=== PATIENT | female | born 1940 | race Caucasian/White ===

== ENCOUNTER 2017-01-18 14:13 | Emergency (ER) | payer MEDICARE ==
[2017-01-18 14:28] VITALS: O2SAT 95
--- NOTE | 2017-01-18 14:35 | ERPHSYRPT ---
- History of Present Illness Time Seen by Provider: 01/18/17 14:17 Source: patient, family Exam Limitations: no limitations Patient Subjective Stated Complaint: PT REPORTS ROLLING RIGHT ANKLE-REPORTS PAIN TO RIGHT ANKLE Triage Nursing Assessment: PT PINK WARM ET [id number] NOTED TO RIGHT ANKLE-PEDAL PULSE REGULAR ET STRONG Physician History: mis stepped twisting right ankle at home a few minutes ago; local pain; no other injury or complaint; no prior hx Method of Injury: twisted Occurred: just prior to arrival, this afternoon Quality: constant, aching Severity of Pain-Max: moderate Severity of Pain-Current: mild Lower Extremities Pain: ankle: right Modifying Factors: Improves With: cold therapy (better), immobilization (better) , movement (worse) Associated Symptoms: unable to bear weight Allergies/Adverse Reactions: No Known Drug Allergies Allergy (Verified 01/18/17 14:19) Home Medications: Furosemide 40 mg [Lasix 40 MG] 40 mg PO DAILY 11/22/12 [History] Metoprolol Succinate 100 mg [Toprol Xl 100 MG] 100 mg PO BID 11/22/12 [ History] Potassium Chloride [Micro-K] 8 meq PO DAILY 11/22/12 [History] Lorazepam 1 mg [Ativan 1 MG] 1 mg PO TIDPRN 02/22/14 [History] Lisinopril 20 mg [Zestril 20 MG] 40 mg PO DAILY 03/27/15 [History] Oxycodone HCl/Acetaminophen [Percocet 7.5-325 mg Tablet] 1 each PO Q4HPRN PRN [History] Meloxicam 15 mg [Meloxicam 15 MG] 15 mg PO UD 01/18/17 [History] Hx Tetanus, Diphtheria Vaccination/Date Given: Yes Hx Influenza Vaccination/Date Given: No Hx Pneumococcal Vaccination/Date Given: No Immunizations Up to Date: Yes - Review of Systems Constitutional: No Symptoms Eyes: No Symptoms Ears, Nose, & Throat: No Symptoms Respiratory: No Cough, No Dyspnea, No Wheezing Cardiac: No Chest Pain, No Palpitations, No Syncope Abdominal/Gastrointestinal: No Abdominal Pain, No Nausea, No Vomiting, No Diarrhea Genitourinary Symptoms: No Symptoms Musculoskeletal: Injury (twisted right ankle), Joint Pain (right ankle) Skin: No Symptoms Neurological: No Symptoms Psychological: No Symptoms Endocrine: No Symptoms Hematologic/Lymphatic: No Symptoms Immunological/Allergic: No Symptoms - Past Medical History Pertinent Past Medical History: Yes Neurological History: No Pertinent History ENT History: Cataracts Cardiac History: High Cholesterol, Hypertension Respiratory History: No Pertinent History Endocrine Medical History: No Pertinent History Musculoskeletal History: Degenerative Disk Disease, Osteoarthritis, Other GI Medical History: Gallbladder Disease History: No Pertinent History Psycho-Social History: Anxiety, Depression Female Reproductive Disorders: No Pertinent History Other Medical History: Spinal Stenosis - Past Surgical History Past Surgical History: Yes Neuro Surgical History: No Pertinent History Cardiac: No Pertinent History Respiratory: No Pertinent History Gastrointestinal: Appendectomy, Cholecystectomy Genitourinary: No Pertinent History Musculoskeletal: Joint Replacement, Other Female Surgical History: No Pertinent History, Tubal Ligation Other Surgical History: Cataracts, Carpel Tunnel, Bilateral knee replacements - Social History Smoking Status: Never smoker Exposure to second hand smoke: No Alcohol Use: None Drug Use: none Patient Lives Alone: Yes Significant Family History: no pertinent family hx - Female History Hx Now: No - Nursing Vital Signs Nursing Vital Signs: Initial Vital Signs Temperature 98.1 F 01/18/17 14:21 Pulse Rate 72 01/18/17 14:21 Respiratory Rate 18 01/18/17 14:21 Blood Pressure 151/67 01/18/17 14:21 O2 Sat by Pulse Oximetry 96 01/18/17 14:21 Pain Scale Pain Intensity 8 - Physical Exam General Appearance: mild distress, alert, obese Eyes, Ears, Nose, Throat Exam: normal ENT inspection, moist mucous membranes Neck Exam: normal inspection, non-tender, supple, full range of motion Cardiovascular/Respiratory Exam: chest non-tender, normal breath sounds, regular rate/rhythm, heart sounds normal, no ecchymosis, no JVD, no M/R/G, no respiratory distress Gastrointestinal/Abdominal Exam: non-tender, soft, no organomegaly Back Exam: normal inspection, normal range of motion, No CVA tenderness Hips Exam: bilateral: non-tender, normal inspection, normal range of motion, no evidence of injury Legs Exam: bilateral leg: non-tender, normal inspection, normal range of motion , no evidence of injury Knees Exam: bilateral knee: non-tender, normal inspection, normal range of motion, no evidence of injury Ankle Exam: right ankle: bone tenderness (lateral malleolus), pain (lateral malleolus), soft tissue tenderness (lateral malleolus), swelling (lateral malleolus), left ankle: non-tender, normal inspection, normal range of motion, no evidence of injury Foot Exam: bilateral foot: non-tender, normal inspection, normal range of motion , no evidence of injury Neuro/Tendon Exam: normal sensation, normal motor functions, normal tendon functions, responds to pain Mental Status Exam: alert, oriented x 3, cooperative Skin Exam: normal color, warm, dry, No rash, No petechiae SpO2 Interpretation: normal SpO2: 95 Oxygen Delivery: Room Air - Course Nursing assessment & vital signs reviewed: Yes - Radiology Exams Right Ankle X-ray Interpretation: Interpreted by me, Non-displaced Fracture (hairline fracture distal right fibula; DJD and heel spurs) Ordered Tests: Active Orders 24 hr Category Date Time Status Cold Application STAT Care 01/18/17 14:25 Active Re-Check Vital Signs STAT Care 01/18/17 14:25 Active ANKLE (3 VIEWS) Stat Exams 01/18/17 14:25 Taken - Progress Progress: re-examined (after xr) Progress Note: 01/18/17 14:34 patient refused pain meds; ice applied; xr pending; will recheck 01/18/17 14:58 reviewed xr findings; treatment plan and instructions given; patient has a walker and walking boot at home and pain meds; patient will use hers Counseled pt/family regarding: diagnosis, need for follow-up, rad results - Departure Time of Disposition: 14:59 Departure Disposition: Home Clinical Impression: Fracture of ankle, Right fibular fracture Condition: Stable Critical Care Time: No Referrals: APRYL CRAIG [Primary Care Provider] - Instructions: Ankle Fracture, Ankle Sprain Additional Instructions: Acute Sprain Instructions lower extremity; R.I.C.E.; wear splint/immobilyzer as directed; observe for neuro-vascular compromise ( change in color; increased pain; cold to touch); Use crutches, walker, cane as directed. FU LMD/ specialist as directed; call for appointment as directed; Return if problems; Take meds as prescribed. Follow-up with family doctor as directed. Call for appointment. Return if any problems. If you smoke please stop. Call or follow up with your family doctor for assistance if you need it to stop. Please wear your seatbelt when driving. Have a nice day. Thank you for allowing us to participate in your care today. :o) Dr Orville Bingham
--- NOTE | 2017-01-18 15:00 | XRAY ---
Indication: Pain and swelling following fall. Comparison: None 3 views of the right ankle demonstrates nondisplaced transverse hairline fracture involving the lateral malleolus with soft tissue swelling. Elsewhere moderate spurring of the posterior/plantar calcaneus and mid foot.
[2017-01-18 15:14] VITALS: BP 101/48; PULSE 70
== END 2017-01-18 15:15 | disposition home or self-care (01) ==
LOC: ED 14:13
DX: S82.64XA Nondisplaced fracture of lateral malleolus of right fibula, initial encounter for closed fracture (principal); W10.9XXA Fall (on) (from) unspecified stairs and steps, initial encounter; X50.0XXA Overexertion from strenuous movement or load, initial encounter; E78.00 Pure hypercholesterolemia, unspecified; I10 Essential (primary) hypertension
CPT/HCPCS: 73610; 99283

== ENCOUNTER 2017-06-18 12:50 | Observation (INO) | payer MEDICARE ==
--- NOTE | 2017-06-18 13:25 | ERPHSYRPT ---
- History of Present Illness Time Seen by Provider: 06/18/17 13:15 Source: patient Exam Limitations: no limitations Patient Subjective Stated Complaint: states fell three weeks ago on tailbone. saw family and was advised to take pain meds and rest. is continuing to have pain without relief and difficulty getting around. Triage Nursing Assessment: to room per ems cot. skin w/d, color normal, resp easy. patient tender in lower back and sacral area. good bilateral pedal pulses and good cap refill. Physician History: The patient is a 76-year-old obese female brought in by ambulance from home complaining of severe pain in her low back. She fell 3 weeks ago in her minivan that had no pain for over a week. Even the same day she fell, she went to physical therapy for arthritis. For over a week now her low back has been worsening. She saw her local doctor a few days ago for the pain and was told that even if it was a broken tailbone there is nothing we would do about it. She was told to take her Percocet that she uses for arthritis for this pain. This morning even though she has a walker, she was unable to ambulate at home. Denies any problems with urination or defecation. Her past medical history is significant for arthritis, bilateral knee replacements, hypertension, and anxiety. Timing/Duration: week(s) (1) Method of Injury: unknown Quality: stabbing Back Pain Location: lumbar spine, coccyx Severity of Pain-Max: severe Severity of Pain-Current: severe Modifying Factors: Improves With: pain medication Associated Symptoms: lower back pain Previous symptoms: no prior history Allergies/Adverse Reactions: No Known Drug Allergies Allergy (Verified 06/18/17 13:02) Home Medications: Furosemide 40 mg [Lasix 40 MG] 40 mg PO DAILY 11/22/12 [History] Metoprolol Succinate 100 mg [Toprol Xl 100 MG] 100 mg PO BID 11/22/12 [ History] Potassium Chloride [Micro-K] 8 meq PO DAILY 11/22/12 [History] Lisinopril 20 mg [Zestril 20 MG] 40 mg PO DAILY 03/27/15 [History] Oxycodone HCl/Acetaminophen [Percocet 7.5-325 mg Tablet] 5 mg PO Q4HPRN PRN 10/ 01/15 [History] Meloxicam 15 mg [Meloxicam 15 MG] 15 mg PO UD 01/18/17 [History] Allopurinol 100 mg [Zyloprim 100 mg] 100 mg PO DAILY 06/18/17 [History] Alprazolam 0.25 mg [xanAX 0.25 MG] 0.25 mg PO Q6HPRN PRN 06/18/17 [History ] Atorvastatin Calcium [Lipitor] 40 mg PO DAILY 06/18/17 [History] Cyclobenzaprine HCl 10 mg [Cyclobenzaprine 10 MG] 10 mg PO [id number] PRN [History] Gabapentin [Neurontin] 300 mg PO HS 06/18/17 [History] Omeprazole 20 MG [Prilosec 20 mg] 20 mg PO DAILY 06/18/17 [History] Oxybutynin Chloride Xl 5 mg [Ditropan XL 5 MG] 5 mg PO BIDPRN PRN [History] Hx Tetanus, Diphtheria Vaccination/Date Given: Yes (2013) Hx Influenza Vaccination/Date Given: Yes Hx Pneumococcal Vaccination/Date Given: Yes - Review of Systems Constitutional: No Fever, No Chills Eyes: No Symptoms Ears, Nose, & Throat: No Symptoms Respiratory: No Cough, No Dyspnea Cardiac: No Chest Pain, No Edema, No Syncope Abdominal/Gastrointestinal: No Abdominal Pain, No Nausea, No Vomiting, No Diarrhea Genitourinary Symptoms: No Dysuria Musculoskeletal: Arthralgias, Fall, Injury Skin: No Rash Neurological: No Dizziness, No Focal Weakness, No Sensory Changes Psychological: No Symptoms Endocrine: No Symptoms Hematologic/Lymphatic: No Symptoms Immunological/Allergic: No Symptoms All Other Systems: Reviewed and Negative - Past Medical History Pertinent Past Medical History: Yes Neurological History: No Pertinent History ENT History: Cataracts Cardiac History: High Cholesterol, Hypertension Respiratory History: No Pertinent History Endocrine Medical History: No Pertinent History Musculoskeletal History: Arthritis, Osteoporosis GI Medical History: Gallbladder Disease History: No Pertinent History Psycho-Social History: Anxiety, Depression Female Reproductive Disorders: No Pertinent History Other Medical History: Spinal Stenosis - Past Surgical History Past Surgical History: Yes Neuro Surgical History: No Pertinent History Cardiac: No Pertinent History Respiratory: No Pertinent History Gastrointestinal: Appendectomy, Cholecystectomy Genitourinary: No Pertinent History Musculoskeletal: Joint Replacement, Other Female Surgical History: No Pertinent History, Tubal Ligation Other Surgical History: Cataracts, Carpel Tunnel, Bilateral knee replacements - Social History Smoking Status: Former smoker Exposure to second hand smoke: No Alcohol Use: None Drug Use: none Patient Lives Alone: Yes Significant Family History: no pertinent family hx - Female History Hx Now: No - Nursing Vital Signs Nursing Vital Signs: Initial Vital Signs Temperature 99.1 F 06/18/17 12:51 Pulse Rate 83 06/18/17 12:51 Respiratory Rate 16 06/18/17 12:51 Blood Pressure 151/75 06/18/17 12:51 O2 Sat by Pulse Oximetry 96 06/18/17 12:51 Pain Scale Pain Intensity 3 - Physical Exam General Appearance: moderate distress, obese Eye Exam: PERRL/EOMI, eyes nml inspection Ears, Nose, Throat Exam: normal ENT inspection Neck Exam: normal inspection, non-tender, supple, full range of motion, No meningismus, No midline tenderness Respiratory Exam: normal breath sounds, lungs clear, No respiratory distress Cardiovascular Exam: regular rate/rhythm, normal heart sounds Gastrointestinal Exam: soft, No tenderness, No mass Pelvic Exam: not done Rectal Exam: not done Back Exam: decreased range of motion, other (tenderness in low lumbar and sacral area), No vertebral tenderness Extremity Exam: normal inspection, normal range of motion, No calf tenderness, No pedal edema Neurologic Exam: alert, oriented x 3, cooperative, 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 tested, normal mood/affect, nml station & gait, sensation nml, No motor deficits Skin Exam: normal color, warm, dry, No rash SpO2 Interpretation: normal SpO2: 96 Oxygen Delivery: Room Air - CT Exams Pelvis CT Interpretation: Negative, Tele-radiologist Report, Other (mild wall thickening of sigmoid colon, possible colitis per ) Lumbar Spine CT Interpretation: Tele-radiologist Report, No Fracture, No Subluxation, Other ( Severe degnerative changes in lumbar spine per Dr Shaikh.) Ordered Tests: Active Orders 24 hr Category Date Time Status LUMBAR SPINE W/O [CT] Stat Exams 06/18/17 13:30 Taken PELVIS WITHOUT CONTRAST [CT] Stat Exams 06/18/17 13:31 Taken - Progress Progress: unchanged Discussed with DrRonni: Debi Counseled pt/family regarding: diagnosis, rad results - Departure Time of Disposition: 15:13 Departure Disposition: Observation (per Dr Carrera) Clinical Impression: Back pain Condition: Stable Critical Care Time: No Referrals: APRYL CRAIG [Primary Care Provider] -
[2017-06-18] MEDS ORDERED: Zofran 4 MG/2 ML VIAL IV PRN (16:15)
[2017-06-18] MEDS ORDERED: MORPHINE SULFATE 4 MG INJ IV PRN (16:15)
[2017-06-18] MEDS: Sodium Chloride 0.9% 1000 ML 1,000 ML IV SCH (17:42)
--- NOTE | 2017-06-18 18:43 | XRAY ---
Indication: Low back pain following fall 2 weeks ago. Multiple contiguous axial images obtained through the lumbar spine. Sagittal and coronal reformatted images obtained. Comparison: None. Axial images negative for acute fracture or suspicious bony lesions. There is moderate/advanced L2-S1 degenerative disc osteophyte complex effacing the thecal sac and producing L3-S1 spinal canal and bilateral foraminal stenosis. Same disc levels demonstrates degenerative vacuum disc phenomena. Sagittal and coronal reformatted images demonstrate L2-S1 disc space narrowing. No acute compression fracture or subluxation. Visualized noncontrasted soft tissues demonstrates mild aortoiliac calcifications. Impression: 1. Negative for acute fracture/subluxation. 2. Moderate/advanced L2-S1 degenerative disc disease. Greatest extent at L3-S1 levels with spinal canal and foraminal stenosis. Outpatient MRI may yield further information. Comment: Preliminary interpretation was made by [facility]. No discrepancy. CTDI 154.71
--- NOTE | 2017-06-18 18:47 | XRAY ---
Indication: Pelvic pain following fall 2 weeks ago. Multiple contiguous axial images obtained through the pelvis. Sagittal and coronal reformatted images obtained. Comparison: None Mild bilateral hip degenerative changes. No acute fracture, dislocation, or suspicious bony lesions. Degenerative changes of the lower lumbar spine reported separately. Visualized noncontrasted soft tissues demonstrates mild scattered vascular calcifications. Impression: 1. Negative acute fracture/dislocation. 2. Degenerative changes. Comment: Preliminary interpretation was made by [facility]. No critical discrepancy. CTDI 65.15
[2017-06-18] MEDS ORDERED: Ditropan 5 MG PO PRN (20:02)
[2017-06-18] MEDS ORDERED: xanAX 0.25 MG PO SCH (20:15)
[2017-06-18] MEDS: Lopressor 50 MG PO SCH (21:18)
[2017-06-18] MEDS ORDERED: NEURONTIN 300 MG PO SCH (22:00)
[2017-06-18] MEDS: OXYCODONE-ACETAMINOPHEN 10-325 PO PRN (23:20)
[2017-06-19] MEDS: Sodium Chloride 0.9% 1000 ML 1,000 ML IV SCH ×2 (03:00→13:58)
[2017-06-19 05:41] LABS: BASOPHIL % 0.3 % (0.0-0.4); Basophil (Absolute #) 0.02 (0-0.4); Eosinophil % 2.7 % (0.00-5.0); Eosinophil (Absolute #) 0.16 (0-0.5); Granulocyte Absolute (ANC) 2.87 (1.4-6.9); Granulocytes % 49.4 % (36.0-66.0); Hematocrit 35.6 % (35-47); Hemoglobin 11.4 gm/dl (12.0-16.0); Lymphocyte (Absolute #) 2.19 (1.0-4.6); Lymphocytes % 37.6 % (24.0-44.0); Mean Cell Volume 90.8 fl (78-100); Mean Platelet Volume 9.7 fl (6-9.5); Monocyte (Absolute #) 0.58 (0.0-1.3); Platelet Count 212 K/mm3 (150-450); Red Blood Count 3.92 M/mm3 (4.1-5.4); Red Cell Distribution Width 14.3 % (11.5-14.0); White Blood Count 5.8 K/mm3 (4.0-10.5)
[2017-06-19 05:46] LABS: ANION GAP 10.6 MEQ/L (5-15); BLOOD UREA NITROGEN 6 mg/dL (9-20); CHLORIDE 106 mEq/L (98-107); Carbon Dioxide 28.9 mEq/L (21-32); Creatinine 1 0.79 mg/dl (0.55-1.30); EST GLOMERULAR FILTRATION RATE > 60 ML/MIN; Glucose 136 MG/DL (70-110); SODIUM 142 mEq/L (136-145)
[2017-06-19] MEDS: OXYCODONE-ACETAMINOPHEN 10-325 PO PRN ×2 (08:22→12:41)
[2017-06-19] MEDS ORDERED: Cyclobenzaprine 10 MG PO PRN (09:01)
[2017-06-19] MEDS ORDERED: Mobic 7.5 MG PO PRN (09:01)
[2017-06-19] MEDS ORDERED: Ditropan XL 5 MG PO PRN (09:01)
[2017-06-19] MEDS: ZYLOPRIM 100 MG PO SCH (09:31)
[2017-06-19] MEDS: Lasix 40 MG PO SCH (09:31)
[2017-06-19] MEDS: Lopressor 50 MG PO SCH ×2 (09:31→21:05)
[2017-06-19] MEDS: Protonix 40MG Tablet PO SCH (09:31)
[2017-06-19] MEDS: Zestril 20 MG PO SCH (09:31)
[2017-06-19] MEDS: Klor Con 10 MEQ PO SCH (09:31)
[2017-06-19] MEDS ORDERED: NON-FORMULARY ITEM (Lisinopril [Zestril] 40 MG) PO SCH (10:00)
[2017-06-19] MEDS ORDERED: NON-FORMULARY ITEM (Omeprazole 20 Mg [Prilosec 20 Mg] 20 MG) PO SCH (10:00)
[2017-06-19] MEDS ORDERED: POTASSIUM CHLORIDE 8 MEQ PO SCH (10:00)
--- NOTE | 2017-06-19 11:37 | PCM.HP ---
History of Present Illness - Chief Complaint Chief Complaint: back pain History of Present Illness: is a 76 year old female pt of Dr. Turner who fell almost 3 weeks ago. Initially she didn't have any pain, in fact continued her phyiscal therapy the same day. Later that week she began having low back pain which now radiates to her legs, R>L. She denies any paresthesias. She does present a mixed picture of urinary retention for the past week or so (pt is only a fair historian) with intermittent episodes but did urinate well this morning. Her pain is currently well controlled when she is at rest. When she gets up it is uniformly 10/10. Requires one assist to walk to the bathroom (pt lives at home). She says the pain medicine helps her "for a little while" (on percocet 1 po q4h prn). - Review of Systems Genitourinary Symptoms: Urinary Retention (intermittently) Musculoskeletal: Back Pain, Other (leg pain) Neurological: No Parasthesia All Other Systems: Reviewed and Negative Medications & Allergies Home Medications: Home Medication List Furosemide 40 mg [Lasix 40 MG] 40 mg PO DAILY 11/22/12 [History Confirmed 06/18/17] Potassium Chloride [Micro-K] 8 meq PO DAILY 11/22/12 [History Confirmed 06/18/17 ] Allopurinol 100 mg [Zyloprim 100 mg] 100 mg PO DAILY 06/18/17 [History Confirmed 06/18/17] Alprazolam 0.25 mg [xanAX 0.25 MG] 0.25 mg PO Q6HPRN PRN 06/18/17 [ History Confirmed 06/18/17] Atorvastatin Calcium [Lipitor] 40 mg PO DAILY 06/18/17 [History Confirmed ] Cyclobenzaprine HCl 10 mg [Cyclobenzaprine 10 MG] 10 mg PO [id number] PRN [History Confirmed 06/18/17] Gabapentin [Neurontin] 300 mg PO HS 06/18/17 [History Confirmed 06/18/17] Lisinopril [Zestril] 40 mg PO DAILY 06/18/17 [History Confirmed 06/18/17] Meloxicam 7.5 mg PO DAILY 06/18/17 [History Confirmed 06/18/17] Metoprolol Tartrate [Lopressor] 100 mg PO BID 06/18/17 [History Confirmed ] Omeprazole 20 MG [Prilosec 20 mg] 20 mg PO DAILY 06/18/17 [History Confirmed ] Oxybutynin Chloride Xl 5 mg [Ditropan XL 5 MG] 5 mg PO BIDPRN PRN [History Confirmed 06/18/17] Oxycodone HCl/Acetaminophen [Oxycodone-Acetaminophen 5-325] 1 each PO Q4HPRN PRN 06/18/17 [History Confirmed 06/18/17] Allergies/Adverse Reactions: Allergies Allergy/AdvReac Type Severity Reaction Status Date / Time No Known Drug Allergies Allergy Verified 06/18/17 15:52 - Past Medical History Past Medical History: Yes Neurological History: No Pertinent History ENT History: Cataracts Cardiac History: High Cholesterol, Hypertension Respiratory History: No Pertinent History Endocrine Medical History: No Pertinent History Musculoskelatal History: Arthritis, Osteoporosis GI Medical History: GERD, Gallbladder Disease History: No Pertinent History Pyscho-Social History: Anxiety, Depression Reproductive Disorders: No Pertinent History Comment: Spinal Stenosis - Female History Are you now?: No - Past Surgical History Past Surgical History: Yes Neuro Surgical History: No Pertinent History Cardiac History: No Pertinent History Respiratory Surgery: No Pertinent History GI Surgical History: Appendectomy, Cholecystectomy Genitourinary Surgical Hx: No Pertinent History Musculskeletal Surgical Hx: Joint Replacement, Other Female Surgical History: Tubal Ligation Other Surgical History: Carpel Tunnel, Bilateral knee replacements - Social History Smoking Status: Former smoker Exposure to second hand smoke: No Alcohol: None Drug Use: none Significant Family History: no pertinent family hx - Physical Exam Vital Signs: Vital Signs - 24 hr Temp Pulse Resp BP Pulse Ox 06/19/17 08:00 98.1 F 68 18 180/76 95 06/19/17 04:05 98.0 F 68 18 140/63 93 L 06/18/17 23:42 98.8 F 76 24 167/74 93 L 06/18/17 19:38 98.4 F 75 20 182/73 95 06/18/17 16:06 98.4 F 76 18 157/90 94 L 06/18/17 15:51 98.4 F 78 18 157/90 94 L 06/18/17 15:50 98.4 F 78 18 157/90 94 L 06/18/17 15:40 98.4 F 78 18 157/90 94 L 06/18/17 15:18 96 06/18/17 14:59 84 18 103/51 94 L 06/18/17 14:12 78 18 169/91 98 06/18/17 12:51 99.1 F 83 16 151/75 96 General Appearance: no apparent distress, obese Neurologic Exam: oriented x 3, cooperative Eye Exam: eyes nml inspection Neck Exam: normal inspection, supple Respiratory Exam: normal breath sounds, lungs clear, No crackles/rales, No rhonchi, No wheezing Cardiovascular Exam: regular rate/rhythm, normal heart sounds, No murmur Gastrointestinal/Abdomen Exam: soft, normal bowel sounds, No tenderness Back Exam: other (numerous seborrheic keratoses present), No vertebral tenderness (and no paravertebral tenderness (approx L5). no SI joint TTP. Unable to elicit patellar reflexes bilat.) Results - Labs Lab/Micro Results: Lab Results-Last 24 Hours 06/19/17 06/19/17 Range/Units 05:00 05:00 WBC 5.8 (4.0-10.5) K/mm3 RBC 3.92 L (4.1-5.4) M/mm3 Hgb 11.4 L (12.0-16.0) gm/dl Hct 35.6 (35-47) % MCV 90.8 (78-100) fl MCH 29.0 (26-32) pg MCHC 32.0 (32-36) g/dl RDW 14.3 H (11.5-14.0) % Plt Count 212 (150-450) K/mm3 MPV 9.7 H (6-9.5) fl Gran % 49.4 (36.0-66.0) % Lymphocytes % 37.6 (24.0-44.0) % Monocytes % 10.0 (0.0-12.0) % Eosinophils % 2.7 (0.00-5.0) % Basophils % 0.3 (0.0-0.4) % Basophils # 0.02 (0-0.4) Sodium 142 (136-145) mEq/L Potassium 4.0 (3.5-5.1) mEq/L Chloride 106 (98-107) mEq/L Carbon Dioxide 28.9 (21-32) mEq/L Anion Gap 10.6 (5-15) MEQ/L BUN 6 L (9-20) mg/dL Creatinine 0.79 (0.55-1.30) mg/dl Estimated GFR > 60 ML/MIN Glucose 136 H (70-110) MG/DL Calcium 9.0 (8.5-10.1) mg/dL Assessment/Plan (1) Back pain Current Visit: Yes Status: Acute Qualifiers: Back pain location: low back pain Chronicity: acute Back pain laterality : midline Sciatica presence: with sciatica Sciatica laterality: bilateral sciatica Qualified Code(s): M54.42 - Lumbago with sciatica, left side; M54.41 - Lumbago with sciatica, right side; M54.41 - Lumbago with sciatica, right side Assessment & Plan: The CT lumbar spine and pelvis without any fractures. She certainly can't go home (lives alone) while requiring one assist. WBC are not elevated, but will check an ESR to help r/o osteomyelitis/discitis. I would like to get an MRI as she does have stenosis at L3-S1 (however that is not available today). She is claustrophobic and would need medicated to get an MRI. This pain is acute on chronic. She had injections in the past and would like to look into having them in the future. Code(s): M54.9 - DORSALGIA, UNSPECIFIED (2) Urinary retention Current Visit: Yes Status: Acute Assessment & Plan: Intermittent. If she complains again of not feeling that she's emptied, will have the nurse do a catheter, possibly anchor if significant amount of urine is present. Code(s): R33.9 - RETENTION OF URINE, UNSPECIFIED (3) Hypertensive heart disease Current Visit: No Status: Acute Assessment & Plan: One BP in the 100s, but generally 150s-160 while here. Will start 2.5mg amlodipine daily. Code(s): I11.9 - HYPERTENSIVE HEART DISEASE WITHOUT HEART FAILURE
[2017-06-19] MEDS: NEURONTIN 300 MG PO SCH ×2 (12:41→21:05)
[2017-06-19] MEDS: NORVASC 5 MG PO SCH (12:42)
[2017-06-19] MEDS ORDERED: LIPITOR 40MG PO SCH (22:00)
[2017-06-20] MEDS: OXYCODONE-ACETAMINOPHEN 10-325 PO PRN ×3 (00:14→14:41)
[2017-06-20] MEDS: Sodium Chloride 0.9% 1000 ML 1,000 ML IV SCH ×2 (00:15→14:38)
[2017-06-20 06:34] LABS: BASOPHIL % 0.3 % (0.0-0.4); Basophil (Absolute #) 0.02 (0-0.4); Eosinophil (Absolute #) 0.18 (0-0.5); Granulocytes % 51.5 % (36.0-66.0); Hematocrit 33.4 % (35-47); Hemoglobin 10.7 gm/dl (12.0-16.0); Lymphocyte (Absolute #) 2.01 (1.0-4.6); Lymphocytes % 33.4 % (24.0-44.0); Mean Cell Volume 91.8 fl (78-100); Mean Platelet Volume 9.8 fl (6-9.5); Monocyte (Absolute #) 0.71 (0.0-1.3); Monocytes % 11.8 % (0.0-12.0); Platelet Count 194 K/mm3 (150-450); Red Blood Count 3.64 M/mm3 (4.1-5.4); Red Cell Distribution Width 14.5 % (11.5-14.0)
[2017-06-20 06:43] LABS: Mean Corpuscular Hemoglobin 29.3 pg (26-32)
[2017-06-20 06:50] LABS: ANION GAP 7.6 MEQ/L (5-15); BLOOD UREA NITROGEN 6 mg/dL (9-20); CHLORIDE 105 mEq/L (98-107); Calcium 8.6 mg/dL (8.5-10.1); Carbon Dioxide 31.9 mEq/L (21-32); Creatinine 1 0.92 mg/dl (0.55-1.30); EST GLOMERULAR FILTRATION RATE > 60 ML/MIN; Glucose 150 MG/DL (70-110); Potassium 4.2 mEq/L (3.5-5.1); SODIUM 140 mEq/L (136-145)
--- NOTE | 2017-06-20 10:06 | PCM.NOTE ---
Date and Time: 06/20/17 1005 Subjective Assessment: she still is unable to walk without assistance she was unable to sleep much last night due to the pain. she is unable to get in a comfortable position due to the pain in the back that is mostly in the sacral/coccyx area. She otherwise is tolerating po well and has no other complaints Objective Exam General Appearance: no apparent distress, alert, obese Neurologic Exam: alert, oriented x 3, cooperative, normal mood/affect, nml cerebellar function, sensation nml, No motor deficits Skin Exam: normal color, warm, dry Eye Exam: PERRL, EOMI, eyes nml inspection Ears, Nose, Throat Exam: normal ENT inspection, pharynx normal, moist mucous membranes Neck Exam: normal inspection, non-tender, supple, full range of motion Respiratory Exam: normal breath sounds, lungs clear, No respiratory distress Cardiovascular Exam: regular rate/rhythm, normal heart sounds Gastrointestinal/Abdomen Exam: soft, No tenderness, No mass Extremity Exam: normal inspection, normal range of motion Back Exam: other (pain in the central lower sacrum/coccyx slr negative bilateral normal hip rotation bilaterally), No CVA tenderness, No vertebral tenderness Pelvic Exam: deferred Rectal Exam: deferred OBJECTIVE DATA Vital Signs: Vital Signs - 24 hr Temp Pulse Resp BP Pulse Ox 06/20/17 08:00 97.8 F 67 18 126/60 93 L 06/20/17 04:05 98.2 F 61 20 163/73 93 L 06/19/17 23:48 98.6 F 77 20 130/60 96 06/19/17 19:54 98.3 F 74 22 148/65 95 06/19/17 16:00 98.5 F 81 20 136/76 90 L 06/19/17 12:00 97.9 F 66 18 137/65 93 L Pain Assessment - Last Documented Pain Intensity 6 Pain Scale Used 0-10 Pain Scale Intake and Output: Intake & Output 06/17/17 06/18/17 06/19/17 06/20/17 11:59 11:59 11:59 11:59 Intake Total 5100 3304 Output Total 8526 2610 Balance 732 -2546 Weight 107.048 kg Lab Results: Lab Results-Last 24 Hours 06/19/17 06/20/17 06/20/17 Range/Units 12:58 05:40 05:40 WBC 6.0 (4.0-10.5) K/mm3 RBC 3.64 L (4.1-5.4) M/mm3 Hgb 10.7 L (12.0-16.0) gm/dl Hct 33.4 L (35-47) % MCV 91.8 (78-100) fl MCH 29.3 (26-32) pg MCHC 32.0 (32-36) g/dl RDW 14.5 H (11.5-14.0) % Plt Count 194 (150-450) K/mm3 MPV 9.8 H (6-9.5) fl Gran % 51.5 (36.0-66.0) % Lymphocytes % 33.4 (24.0-44.0) % Monocytes % 11.8 (0.0-12.0) % Eosinophils % 3.0 (0.00-5.0) % Basophils % 0.3 (0.0-0.4) % Basophils # 0.02 (0-0.4) ESR 56 H (0-20) mm/hr Sodium 140 (136-145) mEq/L Potassium 4.2 (3.5-5.1) mEq/L Chloride 105 (98-107) mEq/L Carbon Dioxide 31.9 (21-32) mEq/L Anion Gap 7.6 (5-15) MEQ/L BUN 6 L (9-20) mg/dL Creatinine 0.92 (0.55-1.30) mg/dl Estimated GFR > 60 ML/MIN Glucose 150 H (70-110) MG/DL Calcium 8.6 (8.5-10.1) mg/dL Assessment/Plan (1) Back pain Current Visit: Yes Status: Acute Qualifiers: Back pain location: low back pain Chronicity: acute Back pain laterality : midline Sciatica presence: without sciatica Qualified Code(s): M54.5 - Low back pain Assessment & Plan: today there is no evidence of sciatica pain that was reported yesterday. Today the pain is lower in the sacrum/coccyx again and central but she remains unable to ambulate without assistance due to the pain. increase the nuerontin try prednisone will see if PT can evaluate in am for safe discharge options, as she lives alone and has no one available to help her and currently unable to get up without assistance. Code(s): M54.9 - DORSALGIA, UNSPECIFIED (2) Hypertension Current Visit: Yes Status: Chronic Code(s): I10 - ESSENTIAL (PRIMARY) HYPERTENSION (3) Unsteady gait Current Visit: Yes Status: Chronic Code(s): R26.81 - UNSTEADINESS ON FEET (4) Recurrent falls Current Visit: Yes Status: Chronic Code(s): R29.6 - REPEATED FALLS (5) Peripheral neuropathy Current Visit: Yes Status: Chronic Code(s): G62.9 - POLYNEUROPATHY, UNSPECIFIED (6) Obesity Current Visit: Yes Status: Chronic Code(s): E66.9 - OBESITY, UNSPECIFIED
[2017-06-20] MEDS ORDERED: DELTASONE 20 MG PO ONE (10:15)
[2017-06-20] MEDS: Lasix 40 MG PO SCH (10:34)
[2017-06-20] MEDS: Klor Con 10 MEQ PO SCH (10:34)
[2017-06-20] MEDS: Lopressor 50 MG PO SCH ×2 (10:35→21:41)
[2017-06-20] MEDS: NORVASC 5 MG PO SCH (10:36)
[2017-06-20] MEDS: Zestril 20 MG PO SCH (10:37)
[2017-06-20] MEDS: Protonix 40MG Tablet PO SCH (10:37)
[2017-06-20] MEDS: ZYLOPRIM 100 MG PO SCH (10:37)
[2017-06-20] MEDS: ENOXAPARIN SODIUM SQ SCH (10:48)
[2017-06-20] MEDS: NEURONTIN 300 MG PO SCH ×3 (11:28→21:41)
[2017-06-20] MEDS ORDERED: ZOCOR 20MG PO SCH (22:00)
[2017-06-21] MEDS: DELTASONE 20 MG PO SCH (09:03)
[2017-06-21] MEDS: ENOXAPARIN SODIUM SQ SCH (09:03)
[2017-06-21] MEDS: Klor Con 10 MEQ PO SCH (09:04)
[2017-06-21] MEDS: Lopressor 50 MG PO SCH ×2 (09:05→21:12)
[2017-06-21] MEDS: Lasix 40 MG PO SCH (09:05)
[2017-06-21] MEDS: NEURONTIN 300 MG PO SCH ×4 (09:05→21:13)
[2017-06-21] MEDS: NORVASC 5 MG PO SCH (09:06)
[2017-06-21] MEDS: Protonix 40MG Tablet PO SCH (09:07)
[2017-06-21] MEDS: Zestril 20 MG PO SCH (09:08)
[2017-06-21] MEDS: ZYLOPRIM 100 MG PO SCH (09:08)
[2017-06-21] MEDS: OXYCODONE-ACETAMINOPHEN 10-325 PO PRN (13:22)
--- NOTE | 2017-06-21 13:54 | PCM.NOTE ---
Date and Time: 06/21/17 1349 Subjective Assessment: she was doing a little better yesterday and was able to get to the bathroom and wash her hair in the sink but today she needs assistance again to get out of bed to the bathroom and back to the bed. the pain continues on the tailbone and bilateral SI area no weakness inthe legs but when the pain shoots it makes her legs weak. Objective Exam General Appearance: no apparent distress, alert, obese Neurologic Exam: alert, oriented x 3, cooperative, normal mood/affect, nml cerebellar function, abnormal gait (slow cautious with assistance unable to do sit to stand), No motor deficits Skin Exam: normal color, warm, dry Eye Exam: PERRL, EOMI, eyes nml inspection Ears, Nose, Throat Exam: normal ENT inspection, pharynx normal, moist mucous membranes Neck Exam: normal inspection, non-tender, supple, full range of motion Respiratory Exam: normal breath sounds, lungs clear, No respiratory distress Cardiovascular Exam: regular rate/rhythm, normal heart sounds Gastrointestinal/Abdomen Exam: soft, No tenderness, No mass Extremity Exam: normal inspection, normal range of motion, pedal edema Back Exam: CVA tenderness, other (tenderness bilatearl SI and tenderness in the sacrum. no pain with slr bilaterally strength 5/5 bilateral while seated.) Pelvic Exam: deferred Rectal Exam: deferred OBJECTIVE DATA Vital Signs: Vital Signs - 24 hr Temp Pulse Resp BP Pulse Ox 06/21/17 11:12 98.1 F 75 16 135/60 94 L 06/21/17 07:27 98.1 F 73 16 145/68 93 L 06/21/17 04:00 97.9 F 85 15 144/60 92 L 06/21/17 00:00 98.0 F 91 H 15 135/62 95 06/20/17 20:00 98.3 F 82 16 135/72 92 L 06/20/17 16:00 98.4 F 76 18 127/93 95 Pain Assessment - Last Documented Pain Intensity 3 Pain Scale Used 0-10 Pain Scale Intake and Output: Intake & Output 06/19/17 06/20/17 06/21/17 06/22/17 11:59 11:59 11:59 11:59 Intake Total 1801 3304 1540 360 Output Total 5648 9092 500 Balance 732 -2546 1040 360 Weight 107.048 kg Assessment/Plan (1) Back pain Current Visit: Yes Status: Acute Qualifiers: Back pain location: low back pain Chronicity: acute Back pain laterality : midline Sciatica presence: without sciatica Qualified Code(s): M54.5 - Low back pain Assessment & Plan: titrate up the gabapentin again and continue the prednisone work with PT ice prn She cannot ambulate without assistance and we are working on rehab options for rehab stay to improve the pain from the fall and continue to work on gait and preventing future falls. She lives alone and currently is in need of assistance with any ambulation. She is very motivated to improve and has good rehab potential Code(s): M54.9 - DORSALGIA, UNSPECIFIED (2) Hypertension Current Visit: Yes Status: Chronic Code(s): I10 - ESSENTIAL (PRIMARY) HYPERTENSION (3) Unsteady gait Current Visit: Yes Status: Chronic Code(s): R26.81 - UNSTEADINESS ON FEET (4) Recurrent falls Current Visit: Yes Status: Chronic Code(s): R29.6 - REPEATED FALLS (5) Peripheral neuropathy Current Visit: Yes Status: Chronic Code(s): G62.9 - POLYNEUROPATHY, UNSPECIFIED (6) Obesity Current Visit: Yes Status: Chronic Code(s): E66.9 - OBESITY, UNSPECIFIED
--- NOTE | 2017-06-21 14:22 | XRAY ---
Indication: Rehabilitation placement. Comparison: July 16, 2013. Portable chest remains clear. Heart and mediastinal structures within normal limits for AP portable technique. Bony thorax intact again with mild degenerative changes. Impression: Stable nonacute chest.
[2017-06-22] MEDS: NEURONTIN 300 MG PO SCH ×4 (09:34→22:03)
[2017-06-22] MEDS: NORVASC 5 MG PO SCH (09:34)
[2017-06-22] MEDS: ZYLOPRIM 100 MG PO SCH (09:34)
[2017-06-22] MEDS: Zestril 20 MG PO SCH (09:34)
[2017-06-22] MEDS: Klor Con 10 MEQ PO SCH (09:35)
[2017-06-22] MEDS: Lasix 40 MG PO SCH (09:35)
[2017-06-22] MEDS: Lopressor 50 MG PO SCH ×2 (09:35→22:03)
[2017-06-22] MEDS: DELTASONE 20 MG PO SCH (09:35)
[2017-06-22] MEDS: ENOXAPARIN SODIUM SQ SCH (09:35)
[2017-06-22] MEDS: Protonix 40MG Tablet PO SCH (09:35)
[2017-06-22] MEDS: NYSTOP 30 GM CREAM TOP SCH ×2 (14:15→22:03)
--- NOTE | 2017-06-22 18:18 | PCM.NOTE ---
Date and Time: 06/22/171813 Subjective Assessment: she is doing better but significant pain in back continues to limit her. she still requires assistance but is requiring less assistance then before. pain worse with laying flat or sitting. Objective Exam General Appearance: alert, obese Neurologic Exam: alert, oriented x 3, cooperative, normal mood/affect Skin Exam: normal color, warm, dry Eye Exam: PERRL, EOMI, eyes nml inspection Ears, Nose, Throat Exam: normal ENT inspection, pharynx normal, moist mucous membranes Neck Exam: normal inspection, non-tender, supple, full range of motion Respiratory Exam: normal breath sounds, lungs clear, No respiratory distress Cardiovascular Exam: regular rate/rhythm, normal heart sounds Gastrointestinal/Abdomen Exam: soft, No tenderness, No mass Extremity Exam: normal inspection, normal range of motion Back Exam: point tenderness (bilateral SI SLR negative hip rotation ok no pain) Pelvic Exam: deferred Rectal Exam: deferred OBJECTIVE DATA Vital Signs: Vital Signs - 24 hr Temp Pulse Resp BP Pulse Ox 06/22/17 16:00 97.6 F 72 22 142/67 93 L 06/22/17 11:53 98.6 F 75 22 120/57 93 L 06/22/17 08:00 97.8 F 63 18 138/65 95 06/22/17 04:00 97.8 F 68 20 166/77 95 06/22/17 00:05 98.2 F 68 20 147/70 94 L 06/21/17 20:00 98.2 F 76 24 113/54 95 Pain Assessment - Last Documented Pain Intensity 4 Pain Scale Used 0-10 Pain Scale Intake and Output: Intake & Output 06/20/17 06/21/17 06/22/17 06/23/17 11:59 11:59 11:59 11:59 Intake Total 3304 1540 900 480 Output Total 5850 500 Balance -2546 1040 900 480 Radiology Exams: Radiology Procedures Category Date Time Status CHEST 1 VIEW (PORTABLE) Routine Exams 06/21/17 13:55 Completed Multi-Disciplinary Progress Notes: Multi-Disciplinary Progress Notes 06/22/17 11:57 Physical Therapy Note by Paola Orantes Pt was seen today in the AM for therapy. She noted no significant pain in the back with sitting or mobility today. She notes pain in the back with lying supine. She reports compliance with ambulating with a rollator walker at home and has been using one in the hospital. Upon arrival into her room today she was bathing herself. She needed assistance with donning undergarments. She ambulated with SBA of 1 ~100 feet with rolling walker to the therapy room. Pt's vitals were taken, BP = 190/100, HR = 76 and O2 sats = 90%. Pt was able to do therapeutic exercises for her core and B LE. She started with 5 minutes on the seated stepper. She was able to do supine strengthening exercises on the mat for her core and B LE. Pt did note back pain with lying down. She required moderate assist of 1 to sit up from lying down. Pt then ambulated back to her room with her rolling walker and SBA of 1. Pt did not have any episodes of LOB, nor did she ever report feeling off balance. She is a mild deviator when walking and has a tendency to catch her wheel of the rolling walker on things. She did note that the exercising did fatigue her and was ready to take a rest when she returned to her room. Paola Orantes, PT Initialized on 06/22/17 11:57 - END OF NOTE 06/22/17 10:37 Case Management Note by Tessa Mckeon CALL TO [facility], F/U WITH [facility] ON [facility]. SWATI TO [facility] TODAY. [facility] PENDING. Initialized on 06/22/17 10:37 - END OF NOTE Assessment/Plan (1) Back pain Current Visit: Yes Status: Acute Qualifiers: Back pain location: low back pain Chronicity: acute Back pain laterality : midline Sciatica presence: without sciatica Qualified Code(s): M54.5 - Low back pain Assessment & Plan: she continues to require assistance to do her adl's and she lives alone she is improving she is looking at options for rehab for a few weeks with good rehab potential for a few weeks. If she had someone at home to assist her we could consider this but currently she has no one available to do this. continue prednisone and gabapentin it worked well last night at the higher dose will keep it here for now Code(s): M54.9 - DORSALGIA, UNSPECIFIED (2) Hypertension Current Visit: Yes Status: Chronic Code(s): I10 - ESSENTIAL (PRIMARY) HYPERTENSION (3) Unsteady gait Current Visit: Yes Status: Chronic Code(s): R26.81 - UNSTEADINESS ON FEET (4) Recurrent falls Current Visit: Yes Status: Chronic Code(s): R29.6 - REPEATED FALLS (5) Peripheral neuropathy Current Visit: Yes Status: Chronic Code(s): G62.9 - POLYNEUROPATHY, UNSPECIFIED (6) Obesity Current Visit: Yes Status: Chronic Code(s): E66.9 - OBESITY, UNSPECIFIED
[2017-06-22] MEDS: OXYCODONE-ACETAMINOPHEN 10-325 PO PRN (20:14)
[2017-06-23] MEDS: ZYLOPRIM 100 MG PO SCH (09:45)
[2017-06-23] MEDS: Lasix 40 MG PO SCH (09:45)
[2017-06-23] MEDS: NEURONTIN 300 MG PO SCH (09:45)
[2017-06-23] MEDS: Zestril 20 MG PO SCH (09:45)
[2017-06-23] MEDS: Protonix 40MG Tablet PO SCH (09:45)
[2017-06-23] MEDS: Klor Con 10 MEQ PO SCH (09:45)
[2017-06-23] MEDS: NORVASC 5 MG PO SCH (09:45)
[2017-06-23] MEDS: ENOXAPARIN SODIUM SQ SCH (09:46)
[2017-06-23] MEDS: NYSTOP 30 GM CREAM TOP SCH (09:46)
[2017-06-23] MEDS: DELTASONE 20 MG PO SCH (09:46)
[2017-06-23] MEDS: Lopressor 50 MG PO SCH (09:46)
[2017-06-23] MEDS ORDERED: Cymbalta 30 MG Capsule PO SCH (10:00)
[2017-06-23 11:55] VITALS: BP 154/83; PULSE 82; O2SAT 94
--- NOTE | 2017-06-23 12:40 | PCM.DCORD ---
- Discharge Discharge Date: 06/23/17 Condition: Stable Prescriptions: New Duloxetine HCl 30 mg [Cymbalta 30 MG Capsule] 30 mg PO QAM cap Prednisone 20 mg [Deltasone 20 mg] 40 mg PO DAILY 4 Days #8 tablet Amlodipine Besylate 5 mg [Norvasc 5 mg] 2.5 mg PO QAM tablet Nystatin Cream 30 gm [Nystop 30 gm Cream] 1 gm TOP BID tube Continue Potassium Chloride [Micro-K] 8 meq PO DAILY Furosemide 40 mg [Lasix 40 MG] 40 mg PO DAILY Oxybutynin Chloride Xl 5 mg [Ditropan XL 5 MG] 5 mg PO BIDPRN PRN PRN Reason: bladder Cyclobenzaprine HCl 10 mg [Cyclobenzaprine 10 MG] 10 mg PO [id number] PRN PRN Reason: Pain Atorvastatin Calcium [Lipitor] 40 mg PO DAILY Omeprazole 20 MG [Prilosec 20 mg] 20 mg PO DAILY Allopurinol 100 mg [Zyloprim 100 mg] 100 mg PO DAILY Metoprolol Tartrate [Lopressor] 100 mg PO BID Lisinopril [Zestril] 40 mg PO DAILY Oxycodone HCl/Acetaminophen [Oxycodone-Acetaminophen 5-325] 1 each PO Q4HPRN PRN #120 tablet MDD 6 PRN Reason: Pain Alprazolam 0.25 mg [xanAX 0.25 MG] 0.25 mg PO Q6HPRN PRN #60 tablet PRN Reason: Anxiety Changed Gabapentin [Neurontin] 300 mg PO QID #120 capsule Discontinued Meloxicam 7.5 mg PO DAILY Additional Instructions: On June 30 increase Cymbalta to 60 mg per day PT evaluate and treat back pain, unstable gait and falls
[2017-06-23] MEDS: OXYCODONE-ACETAMINOPHEN 10-325 PO PRN (13:03)
--- NOTE | 2017-06-23 18:43 | PCM.DS ---
Discharge Summary Date of Admission: 06/18/17 15:49 Date of Discharge: 06/23/17 Admitting Physician: SANDEEP CARRERA Primary Care Provider: APRYL CRAIG Allergies Allergies No Known Drug Allergies Allergy (Verified 06/18/17 15:52) Hospital Summary - Hospital Course Hospital Course: She has had multiple falls over the last month was working with outpatient PT but actually fell the last time getting out of van on to her sacrum and since then has had difficulty working with PT due to the pain. She is now not able to walk on her own at home and the pain prevented her from preforming basic adls at home. She lives alone and was admitted to Dr. Carrera. She had negative CT for any fracture of sacrum or pelvis. SHe continued to have pain and chantal requiring assistance she would have a few periods of improvement in pain temporarely and was working with PT but then had periods were she was unable to get herself out of bed or dress herself without assistance. She had no family that was able to help her at home. She was showing good improvement as we titrated up her gabapentin and used steroid burst to help control her pain in her sacroliliac joints bilaterally as well as contusion of her sacrum/coccyx from the fall. She was still unable to go home alone and did not have the availability of help at home as she lives alone and her family all work out of town. She was thus awaiting a rehab stay and has elected to discharge to [facility] to continue to work on her rehab and titration of her medications. She has a very good rehab potential as she is working very hard and very motivated. Today we also added cymbalta to help with the pain and her chronic anxiety which is worse with her inability to care for herself on her own after this injury and these falls and will titrate it up in 1 week. - Vitals & Intake/Output Vital Signs: Vital Signs Temperature 98.8 F 06/23/17 11:54 Pulse Rate 82 06/23/17 11:54 Respiratory Rate 20 06/23/17 11:54 Blood Pressure 154/83 06/23/17 11:54 O2 Sat by Pulse Oximetry 94 L 06/23/17 11:54 Intake & Output: Intake & Output 06/21/17 06/22/17 06/23/17 06/24/17 11:59 11:59 11:59 11:59 Intake Total 1540 900 780 Output Total 500 Balance 1040 900 780 - Lab Result Diagrams: 06/20/17 05:40 06/20/17 05:40 - Procedures and Test Procedures and Tests throughout Hospitalization: Therapy Orders & Screens 06/18/17 17:00 OT Screen per Nursing Assess Comment: Protocol Order Physician Instructions: Greater than 3 points order OT Admission Screening Reason For Exam: Triggered on Admission Diagnosis: back pain Open Wound/Cellutlitis/Pressure Ulcers: No Acute Fx/ORIF/Change in wt bearing status: No Severe MUSCULOSKELETAL pain: No ADL Dysfunction: Yes Acute CVA w/Hemiparesis/Hemiplegia: No Decreased Functional Mobility/Strength: Yes Sprain/Strain: No Acute Post-op Mobility Dysfunction: No Total Points: 4 PT Screen per Nursing Assess Comment: Protocol Order Physician Instructions: Greater than 3 points order PT Admission Screenin Reason For Exam: Triggered on Admission Diagnosis: back pain Open Wound/Cellutlitis/Pressure Ulcers: No Acute Fx/ORIF/Change in wt bearing status: No Severe MUSCULOSKELETAL pain: No ADL Dysfunction: Yes Acute CVA w/Hemiparesis/Hemiplegia: No Decreased Functional Mobility/Strength: Yes Sprain/Strain: No Acute Post-op Mobility Dysfunction: No Total Points: 4 06/21/17 13:21 PT Eval & Treat (MD Order) ROUTINE Evaluate: Yes Treat: Yes Reason for Eval:: unstable gait, falls, back pain Diagnosis: back pain Discharge Exam General Appearance: no apparent distress, alert, obese Neurologic Exam: alert, oriented x 3, cooperative, normal mood/affect, sensation nml, motor deficits (left leg she is unable to flex she has 3/5 weakness on the left hip flexion otherwise good strength throughout. Her pain is in the bilateral SI joint and sacrum and coccyx on palpation as well as along the right IT band. She does not have pain on the left leg today. SLR negative bilaterally) Skin Exam: normal color, warm, dry Eye Exam: PERRL, EOMI, eyes nml inspection Ears, Nose, Throat Exam: normal ENT inspection, pharynx normal, moist mucous membranes Neck Exam: normal inspection, non-tender, supple, full range of motion Respiratory Exam: normal breath sounds, lungs clear, No respiratory distress Cardiovascular Exam: regular rate/rhythm, normal heart sounds Gastrointestinal/Abdomen Exam: soft, No tenderness, No mass Extremity Exam: normal inspection, normal range of motion Back Exam: normal inspection, normal range of motion, No CVA tenderness, No vertebral tenderness Pelvic Exam: deferred Rectal Exam: deferred Final Diagnosis/Problem List - Final Discharge Diagnosis/Problem (1) Back pain Status: Acute (2) Hypertension Status: Chronic (3) Unsteady gait Status: Chronic (4) Recurrent falls Status: Chronic (5) Peripheral neuropathy Status: Chronic (6) Obesity Status: Chronic - Discharge Discharge Date: 06/23/17 Disposition: DC TO [facility] Condition: Stable Prescriptions: New Duloxetine HCl 30 mg [Cymbalta 30 MG Capsule] 30 mg PO QAM cap Prednisone 20 mg [Deltasone 20 mg] 40 mg PO DAILY 4 Days #8 tablet Amlodipine Besylate 5 mg [Norvasc 5 mg] 2.5 mg PO QAM tablet Nystatin Cream 30 gm [Nystop 30 gm Cream] 1 gm TOP BID tube Continue Potassium Chloride [Micro-K] 8 meq PO DAILY Furosemide 40 mg [Lasix 40 MG] 40 mg PO DAILY Oxybutynin Chloride Xl 5 mg [Ditropan XL 5 MG] 5 mg PO BIDPRN PRN PRN Reason: bladder Cyclobenzaprine HCl 10 mg [Cyclobenzaprine 10 MG] 10 mg PO [id number] PRN PRN Reason: Pain Atorvastatin Calcium [Lipitor] 40 mg PO DAILY Omeprazole 20 MG [Prilosec 20 mg] 20 mg PO DAILY Allopurinol 100 mg [Zyloprim 100 mg] 100 mg PO DAILY Metoprolol Tartrate [Lopressor] 100 mg PO BID Lisinopril [Zestril] 40 mg PO DAILY Oxycodone HCl/Acetaminophen [Oxycodone-Acetaminophen 5-325] 1 each PO Q4HPRN PRN #120 tablet MDD 6 PRN Reason: Pain Alprazolam 0.25 mg [xanAX 0.25 MG] 0.25 mg PO Q6HPRN PRN #60 tablet PRN Reason: Anxiety Changed Gabapentin [Neurontin] 300 mg PO QID #120 capsule Discontinued Meloxicam 7.5 mg PO DAILY Additional Instructions: CADE THAKKAR: On June 30 increase Cymbalta to 60 mg per day PT evaluate and treat back pain, unstable gait and falls HEART HEALTHY DIET SEE ATTACHED MED LIST/RX'S FOR CURRENT MED ORDERS Follow up with: APRYL CRAIG [Primary Care Provider] - 1 Week
== END 2017-06-23 13:30 ==
LOC: ED 12:50 → MED SURG 15:49
PROVIDERS: ADMIT Family Medicine; ATTEND Family Medicine
DX: M54.5 Low back pain (principal); M54.42 Lumbago with sciatica, left side; M54.41 Lumbago with sciatica, right side; I11.9 Hypertensive heart disease without heart failure; R26.81 Unsteadiness on feet; R29.6 Repeated falls; Z91.81 History of falling; G62.9 Polyneuropathy, unspecified; E66.9 Obesity, unspecified; M79.606 Pain in leg, unspecified; M81.0 Age-related osteoporosis without current pathological fracture; M19.90 Unspecified osteoarthritis, unspecified site; K21.9 Gastro-esophageal reflux disease without esophagitis; F41.8 Other specified anxiety disorders; M48.00 Spinal stenosis, site unspecified; Z96.653 Presence of artificial knee joint, bilateral; R33.9 Retention of urine, unspecified
CPT/HCPCS: 36415; 71010; 72131; 72192; 80048; 85025; 85652; 99285; G0378; J1650; J2270; 97110-GP; A9270-GY

== ENCOUNTER 2018-10-11 07:59 | Day surgery (SDC) | payer MEDICARE ==
[2018-10-11] MEDS ORDERED: Ketamine HCl 50 MG/ML IJ ONE (08:00)
[2018-10-11] MEDS ORDERED: Marcaine 0.5% SDV 10 ML IJ ONE (08:00)
[2018-10-11] MEDS ORDERED: LIDOCAINE HCL 2% 100 MG/5 ML IJ ONE (08:00)
[2018-10-11] MEDS ORDERED: Depo-Medrol 40 MG/ML IM ONE (08:00)
[2018-10-11] MEDS ORDERED: DIPRIVAN 200 MG/20 ML IV ONE (08:00)
--- NOTE | 2018-10-11 11:22 | XRAY ---
Indication: Left hip injection. Intraoperative fluoroscopy was provided for 9 seconds. Single digital spot image submitted for interpretation demonstrates needle tip adjacent to the left greater trochanter. Small amount of contrast injected for needle tip placement. Correlate with intraoperative findings/report.
--- NOTE | 2018-10-11 11:22 | XRAY ---
Indication: Right hip injection. Intraoperative fluoroscopy was provided for 15 seconds. Single digital spot image submitted for interpretation demonstrates needle tip adjacent to the right greater trochanter. Small amount of contrast injected for needle tip placement. Correlate with intraoperative findings/report.
--- NOTE | 2018-10-11 11:24 | XRAY ---
9 seconds fluoroscopy time in surgery for left hip injection.
--- NOTE | 2018-10-11 11:35 | XRAY ---
15 seconds fluoroscopy time in surgery for right hip injection.
[2018-10-11] MEDS ORDERED: Lactated Ringers 1,000 ML IV ONE (17:09)
== END 2018-10-11 10:35 | disposition home or self-care (01) ==
LOC: SDC-PAIN 07:59
PROVIDERS: ATTEND Psychiatry & Neurology Pain Medicine
DX: M70.61 Trochanteric bursitis, right hip (principal); M70.62 Trochanteric bursitis, left hip; Z79.899 Other long term (current) drug therapy; E11.9 Type 2 diabetes mellitus without complications; I10 Essential (primary) hypertension
CPT/HCPCS: 20611; 73501; 77002; 82962; J1030; J2704; Q9966

== ENCOUNTER 2019-02-07 09:23 | Day surgery (SDC) | payer MEDICARE ==
[2019-02-07] MEDS ORDERED: Marcaine 0.5% SDV 10 ML IJ ONE (09:24)
[2019-02-07] MEDS ORDERED: Depo-Medrol 40 MG/ML IM ONE (09:24)
[2019-02-07] MEDS ORDERED: DIPRIVAN 200 MG/20 ML IV ONE (10:28)
[2019-02-07] MEDS ORDERED: Ketamine HCl 50 MG/ML ONE (10:28)
--- NOTE | 2019-02-07 11:18 | XRAY ---
Indication: Left greater trochanter injection. Intraoperative fluoroscopy was provided for 9 seconds. Single digital spot image submitted for interpretation demonstrates needle tip projecting just lateral to the left greater trochanter. Small amount of contrast injected for needle tip placement. Correlate with intraoperative findings/report.
--- NOTE | 2019-02-07 11:18 | XRAY ---
Indication: Right greater trochanter injection. Intraoperative fluoroscopy was provided for 10 seconds. Single digital spot image submitted for interpretation demonstrates needle tip projecting just lateral to the right greater trochanter. Small amount of contrast injected for needle tip placement. Correlate with intraoperative findings/report.
--- NOTE | 2019-02-07 11:23 | XRAY ---
9 seconds fluoroscopy time in surgery for left greater trochanteric injection.
--- NOTE | 2019-02-07 11:33 | XRAY ---
10 seconds fluoroscopy time in surgery for right greater trochanteric injection.
[2019-02-07] MEDS ORDERED: Lactated Ringers 1,000 ML IV ONE (15:24)
== END 2019-02-07 11:00 | disposition home or self-care (01) ==
LOC: SDC-PAIN 09:23
PROVIDERS: ATTEND Psychiatry & Neurology Pain Medicine
DX: M70.62 Trochanteric bursitis, left hip (principal); M70.61 Trochanteric bursitis, right hip; E11.9 Type 2 diabetes mellitus without complications; I10 Essential (primary) hypertension; Z79.899 Other long term (current) drug therapy
CPT/HCPCS: 20610; 73501; 77002; 82962; J1030; J2704; Q9966

== ENCOUNTER 2019-11-22 13:18 | Emergency (ER) | payer MEDICARE ==
--- NOTE | 2019-11-22 13:27 | ERPHSYRPT ---
- History of Present Illness Time Seen by Provider: 11/22/19 13:27 Source: patient Exam Limitations: no limitations Physician History: This is a 79-year-old white female who presents to the emergency department 2 days after injuring her right ankle while attempting to ride her tractor/ lawnmower. In the last couple days patient noticed that there is increased swelling, some discoloration and persistent tenderness. She has been walking on it but it has hurt to do so. Method of Injury: fell, twisted Occurred: days ago (2) Quality: constant, aching Severity of Pain-Max: mild Severity of Pain-Current: mild Lower Extremities Pain: ankle: right Modifying Factors: Improves With: movement (Hurts to move and ambulate on right ankle) Allergies/Adverse Reactions: No Known Drug Allergies Allergy (Verified 11/22/19 13:34) Home Medications: Furosemide 40 mg [Lasix 40 MG] 40 mg PO DAILY 11/22/12 [History] Potassium Chloride [Micro-K] 8 meq PO DAILY 11/22/12 [History] Allopurinol 100 mg [Zyloprim 100 mg] 100 mg PO DAILY 06/18/17 [History] Atorvastatin Calcium [Lipitor] 40 mg PO DAILY 06/18/17 [History] Cyclobenzaprine HCl 10 mg [Cyclobenzaprine 10 MG] 10 mg PO [id number] PRN [History] Metoprolol Tartrate [Lopressor] 100 mg PO BID 06/18/17 [History] Omeprazole 20 MG [Prilosec 20 mg] 20 mg PO DAILY 06/18/17 [History] Oxybutynin Chloride Xl 5 mg [Ditropan XL 5 MG] 5 mg PO BIDPRN PRN [History] lisinopriL [Zestril] 40 mg PO DAILY 06/18/17 [History] Hx Tetanus, Diphtheria Vaccination/Date Given: Yes (2013) Hx Influenza Vaccination/Date Given: Yes Hx Pneumococcal Vaccination/Date Given: Yes Travel Risk - International Travel Have you traveled outside of the country in past 3 weeks: No Have you or anyone close to you been diagnosed with or: No Do your reside in a community with a known COVID-19 case?: Yes If Yes where:: [facility] - Coronavirus Screening Has patient experienced Coronavirus symptoms: No - Review of Systems Constitutional: No Symptoms Eyes: No Symptoms Ears, Nose, & Throat: No Symptoms Respiratory: No Symptoms Cardiac: No Symptoms Abdominal/Gastrointestinal: No Symptoms Genitourinary Symptoms: No Symptoms Musculoskeletal: Fall, Injury (Right ankle) Skin: No Symptoms Neurological: No Symptoms Psychological: No Symptoms Endocrine: No Symptoms Hematologic/Lymphatic: No Symptoms Immunological/Allergic: No Symptoms All Other Systems: Reviewed and Negative - Past Medical History Pertinent Past Medical History: Yes Neurological History: No Pertinent History ENT History: Cataracts Cardiac History: High Cholesterol, Hypertension Respiratory History: No Pertinent History Endocrine Medical History: No Pertinent History Musculoskeletal History: Arthritis GI Medical History: GERD, Gallbladder Disease History: No Pertinent History Psycho-Social History: Anxiety, Depression Female Reproductive Disorders: No Pertinent History Other Medical History: Spinal Stenosis - Past Surgical History Past Surgical History: Yes Neuro Surgical History: No Pertinent History Cardiac: No Pertinent History Respiratory: No Pertinent History Gastrointestinal: Appendectomy, Cholecystectomy Genitourinary: No Pertinent History Musculoskeletal: Joint Replacement, Other Female Surgical History: Tubal Ligation Other Surgical History: Carpel Tunnel, Bilateral knee replacements - Social History Smoking Status: Former smoker Exposure to second hand smoke: No Alcohol Use: None Drug Use: none Patient Lives Alone: Yes Significant Family History: no pertinent family hx - Nursing Vital Signs Nursing Vital Signs: Initial Vital Signs Temperature 98.2 F 11/22/19 13:23 Pulse Rate 73 11/22/19 13:23 Blood Pressure 160/70 11/22/19 13:23 O2 Sat by Pulse Oximetry 98 11/22/19 13:23 Pain Scale Pain Intensity 3 - Physical Exam General Appearance: no apparent distress, alert, anxiety Eyes, Ears, Nose, Throat Exam: normal ENT inspection, moist mucous membranes Neck Exam: normal inspection, non-tender, supple, full range of motion Cardiovascular/Respiratory Exam: chest non-tender Gastrointestinal/Abdominal Exam: non-tender Back Exam: normal inspection, normal range of motion, No CVA tenderness, No vertebral tenderness Hips Exam: bilateral: non-tender, normal inspection, normal range of motion, no evidence of injury Legs Exam: bilateral leg: non-tender, normal inspection, normal range of motion , no evidence of injury Knees Exam: bilateral knee: non-tender, normal inspection, normal range of motion, no evidence of injury Ankle Exam: right ankle: pain, soft tissue tenderness, swelling, left ankle: non -tender, normal inspection, normal range of motion, no evidence of injury Foot Exam: right foot: normal range of motion, no evidence of injury, soft tissue tenderness, swelling, left foot: non-tender, normal inspection Neuro/Tendon Exam: normal sensation, normal motor functions, normal tendon functions Mental Status Exam: alert, oriented x 3, cooperative Skin Exam: normal color, warm, dry SpO2 Interpretation: normal O2 Delivery: Room Air - Course Nursing assessment & vital signs reviewed: Yes Ordered Tests: Active Orders 24 hr Category Date Time Status ANKLE (3 VIEWS) Stat Exams 11/22/19 13:29 Taken - Progress Progress: unchanged Progress Note: 11/22/19 14:02 X-ray of right ankle reveals no evidence of acute fracture or dislocation Counseled pt/family regarding: diagnosis, need for follow-up, rad results - Departure Departure Disposition: Home Clinical Impression: Right ankle sprain Condition: Stable Critical Care Time: No Referrals: KATERINA DRISCOLL DO [Primary Care Provider] - Additional Instructions: Ice pack to right ankle 3 times a day for the next 48 hours. Elevate the right lower extremity above the level of the heart. May use Tylenol ibuprofen if not allergic to either one of those medications. Follow-up with your primary physician if symptoms persist
[2019-11-22 13:34] VITALS: BP 160/70; PULSE 73; O2SAT 98
--- NOTE | 2019-11-22 13:59 | XRAY ---
Indication: Pain following twisting injury. Comparison: February 10, 2017. 3 view right ankle now demonstrates old nonunited lateral malleolus tip fracture. Elsewhere soft tissue swelling with stable spurring of the posterior/plantar calcaneus, medial malleolus, base 5th metatarsal, and mid tarsal bones. Stable tiny plantar aponeurosis calcification and faint lower leg vascular calcifications. Remaining ankle unremarkable.
== END 2019-11-22 14:24 | disposition home or self-care (01) ==
LOC: ED 13:18
DX: S93.401A Sprain of unspecified ligament of right ankle, initial encounter (principal); X37.1XXA Tornado, initial encounter; Y93.89 Activity, other specified; Y92.89 Other specified places as the place of occurrence of the external cause; Z79.899 Other long term (current) drug therapy; K21.9 Gastro-esophageal reflux disease without esophagitis; F32.9 Major depressive disorder, single episode, unspecified; F41.9 Anxiety disorder, unspecified; M48.00 Spinal stenosis, site unspecified
CPT/HCPCS: 73610; 99283

== ENCOUNTER 2020-05-04 13:27 | Emergency (ER) | payer MEDICARE ==
[2020-05-04] MEDS ORDERED: Augmentin 875-125 Tablet PO ONE (14:23)
[2020-05-04] MEDS ORDERED: Augmentin 875-125 Tablet ONE (14:23)
--- NOTE | 2020-05-04 14:30 | ERPHSYRPT ---
- History of Present Illness Time Seen by Provider: 05/04/20 13:47 Source: patient Exam Limitations: no limitations Patient Subjective Stated Complaint: dog bite R foot Triage Nursing Assessment: pt to ED c/o dog bite R foot from kirill ty at her home at approx 1200. states she had her feet kicked up in kitchen and dog came back after leaving kitchen and bit her foot. rates 3/10 that does not radiate. full ROM. noted mulitple puncture wounds to top of foot and 2.5 cm lac to top of foot. cleaned with peroxide and alcohol at home bell captain. Physician History: 79 years old female presented in the ER with chief complaint of dog bite right foot prior to arrival. Patient reports she puts food in front of her dog and was walking around, got angry on something and bit her. There was bleeding initially but stopped with applying pressure. She is complaining of mild to moderate dull aching to sharp pain, more with palpation and walking but has no difficulty ambulation. Up-to-date tetanus. Dog is up-to-date with imm unizations. No injury anywhere else. Timing/Duration: today Quality: painful Severity: moderate Location: feet Possible Causes: other Associated Symptoms: change in skin texture Allergies/Adverse Reactions: No Known Drug Allergies Allergy (Verified 05/04/20 13:50) Home Medications: Furosemide 40 mg [Lasix 40 MG] 40 mg PO DAILY 11/22/12 [History] Potassium Chloride [Micro-K] 8 meq PO DAILY 11/22/12 [History] Allopurinol 100 mg [Zyloprim 100 mg] 100 mg PO DAILY 06/18/17 [History] Atorvastatin Calcium [Lipitor] 40 mg PO DAILY 06/18/17 [History] Cyclobenzaprine HCl 10 mg [Cyclobenzaprine 10 MG] 10 mg PO [id number] PRN 06/18/17 [History] Metoprolol Tartrate [Lopressor] 100 mg PO BID 06/18/17 [History] Omeprazole 20 MG [Prilosec 20 mg] 20 mg PO DAILY 06/18/17 [History] Oxybutynin Chloride Xl 5 mg [Ditropan XL 5 MG] 5 mg PO BIDPRN PRN 06/18/17 [History] lisinopriL [Zestril] 40 mg PO DAILY 06/18/17 [History] Hx Tetanus, Diphtheria Vaccination/Date Given: Yes Hx Influenza Vaccination/Date Given: Yes Hx Pneumococcal Vaccination/Date Given: Yes Immunizations Up to Date: Yes Travel Risk - International Travel Have you traveled outside of the country in past 3 weeks: No - Coronavirus Screening Are you exhibiting any of the following symptoms?: No Close contact with a COVID-19 positive Pt in past 14-21 Days: No - Review of Systems Constitutional: No Symptoms Eyes: No Symptoms Ears, Nose, & Throat: No Symptoms Respiratory: No Symptoms Cardiac: No Symptoms Abdominal/Gastrointestinal: No Symptoms Genitourinary Symptoms: No Symptoms Musculoskeletal: Injury Skin: Rash, Skin Lesions Neurological: No Symptoms Psychological: No Symptoms Endocrine: No Symptoms Hematologic/Lymphatic: No Symptoms Immunological/Allergic: No Symptoms - Past Medical History Pertinent Past Medical History: Yes Neurological History: No Pertinent History ENT History: Cataracts Cardiac History: High Cholesterol, Hypertension Respiratory History: No Pertinent History Endocrine Medical History: No Pertinent History Musculoskeletal History: Arthritis GI Medical History: GERD, Gallbladder Disease History: No Pertinent History Psycho-Social History: Anxiety, Depression Female Reproductive Disorders: No Pertinent History Other Medical History: Spinal Stenosis. diet controlled diabetes - Past Surgical History Past Surgical History: Yes Neuro Surgical History: No Pertinent History Cardiac: No Pertinent History Respiratory: No Pertinent History Gastrointestinal: Appendectomy, Cholecystectomy Genitourinary: No Pertinent History Musculoskeletal: Joint Replacement, Other Female Surgical History: Tubal Ligation Other Surgical History: Carpel Tunnel, Bilateral knee replacements - Social History Smoking Status: Former smoker Exposure to second hand smoke: No Alcohol Use: None Drug Use: none Patient Lives Alone: No Significant Family History: no pertinent family hx - Female History Hx Now: No - Nursing Vital Signs Nursing Vital Signs: Initial Vital Signs Temperature 98.9 F 05/04/20 13:40 Pulse Rate 79 05/04/20 13:40 Respiratory Rate 20 05/04/20 13:40 Blood Pressure 170/101 05/04/20 13:40 O2 Sat by Pulse Oximetry 94 L 05/04/20 13:40 Pain Scale Pain Intensity 3 - Physical Exam General Appearance: no apparent distress Eye Exam: eyes nml inspection Neck Exam: normal inspection, supple, full range of motion Respiratory Exam: normal breath sounds, lungs clear Cardiovascular Exam: regular rate/rhythm, normal heart sounds Extremity Exam: other (multiple abrasiona nd bite jermaine witha 3 cm superficial laceration dorsum of mid foot. no active bleed /spurting. minimal erythema swelling around the bite areas) Neurologic Exam: alert, oriented x 3, cooperative Skin Exam: normal color SpO2 Interpretation: normal SpO2: 94 O2 Delivery: Room Air - Course Nursing assessment & vital signs reviewed: Yes Ordered Tests: Active Orders 24 hr Category Date Time Status Wound Care STAT Care 05/04/20 14:35 Completed Medication Summary Discontinued Medications Generic Name Dose Route Start Last Admin Trade Name Miguel A PRN Reason Stop Dose Admin Amoxicillin/Clavulanate Potassium 875 mg 05/04/20 14:23 05/04/20 14:25 Augmentin 875-125 Tablet PO 05/04/20 14:24 875 mg STAT ONE Administration Amoxicillin/Clavulanate Potassium Confirm 05/04/20 14:23 Augmentin 875-125 Tablet Administered 05/04/20 14:24 Dose 875 mg .ROUTE .STK-MED ONE - Progress Progress: unchanged Progress Note: 05/04/20 14:48 offered pain meds which she refuse. cleaned , on small laceration steristrips applied . dog is uptodate with immunization and patient uptodate with tetnus . started on augmenting. outpatient follow up , return for worsening. Counseled pt/family regarding: diagnosis, need for follow-up - Departure Departure Disposition: Home Clinical Impression: Dog bite of right foot Qualifiers: Encounter type: initial encounter Qualified Code(s): S91.351A - Open bite, right foot, initial encounter Condition: Stable Critical Care Time: No Referrals: KATERINA DRISCOLL DO [Primary Care Provider] - Follow Up with PCP/3 days Instructions: Animal Bites (DC) Additional Instructions: Take Tylenol/ibuprofen as needed. Apply ice. Avoid exertional activities, try to stay off of her right foot. Follow-up with primary care/podiatry for reevaluation. Return to ER for increasing swelling redness discharge/fever chil ls etc. Prescriptions: Amox Tr/Potass Clav. 875 mg [Augmentin 875-125 Tablet] 875 mg PO BID 7 Days #14 tablet
[2020-05-04 14:37] VITALS: BP 164/83; PULSE 68
[2020-05-04 14:51] VITALS: O2SAT 94
== END 2020-05-04 14:45 | disposition home or self-care (01) ==
LOC: ED 13:27
DX: S91.351A Open bite, right foot, initial encounter (principal); W54.0XXA Bitten by dog, initial encounter; Z79.899 Other long term (current) drug therapy
CPT/HCPCS: 99283; A9270-GY

== ENCOUNTER 2020-12-25 22:31 | Emergency (ER) | payer MEDICARE ==
[2020-12-25] MEDS ORDERED: NORCO 5/325 MG PO ONE (22:56)
--- NOTE | 2020-12-25 22:57 | ERPHSYRPT ---
- History of Present Illness Time Seen by Provider: 12/25/20 22:50 Source: patient, family Physician History: The patient is an 80-year-old female with a past medical history significant for chronic back pain in which she has a spine stimulator and who is right-hand dominant presents with a chief complaint of right wrist pain. The patient reportedly had a mechanical fall this past Tuesday and fell on an outstretched right hand resulted in injury. She reportedly stubbed her toe causing her to trip and fall on the floor at home. Of note, the patient lives with her daughter. She reportedly has a walker that she uses whenever going outside but was not using her walker indoors at the time of the fall. She states she hit the right side of her head but did not lose consciousness. The patient denies taking anticoagulants. She has no complaints of headache. She states that the right wrist is a throbbing pain that increases upon touching the wrist or trying to move the right hand or wrist. The pain is constant and moderate. She has been taken Tylenol with no relief in her symptoms. She is endorsed swelling and some redness to the right wrist as well. Her daughter decided to bring her to the emergency department and concerned she may have "broke" the right wrist. Allergies/Adverse Reactions: No Known Drug Allergies Allergy (Verified 05/04/20 13:50) Home Medications: Furosemide 40 mg [Lasix 40 MG] 40 mg PO DAILY 11/22/12 [History] Potassium Chloride [Micro-K] 8 meq PO DAILY 11/22/12 [History] Allopurinol 100 mg [Zyloprim 100 mg] 100 mg PO DAILY 06/18/17 [History] Atorvastatin Calcium [Lipitor] 40 mg PO DAILY 06/18/17 [History] Cyclobenzaprine HCl 10 mg [Cyclobenzaprine 10 MG] 10 mg PO [id number] PRN 06/18/17 [History] Metoprolol Tartrate [Lopressor] 100 mg PO BID 06/18/17 [History] Omeprazole 20 MG [Prilosec 20 mg] 20 mg PO DAILY 06/18/17 [History] Oxybutynin Chloride Xl 5 mg [Ditropan XL 5 MG] 5 mg PO BIDPRN PRN 06/18/17 [History] lisinopriL [Zestril] 40 mg PO DAILY 06/18/17 [History] Hx Tetanus, Diphtheria Vaccination/Date Given: Yes Hx Influenza Vaccination/Date Given: Yes Hx Pneumococcal Vaccination/Date Given: Yes - Review of Systems Constitutional: No Fever, No Chills Respiratory: No Symptoms, No Cough, No Cyanosis Cardiac: No Chest Pain, No Edema, No Palpitations Abdominal/Gastrointestinal: No Abdominal Pain, No Nausea, No Vomiting Musculoskeletal: Fall, Injury, Joint Pain, Other (Right wrist pain and swelling), No Back Pain, No Neck Pain Skin: No Symptoms Neurological: No Headache Psychological: No Symptoms - Past Medical History Pertinent Past Medical History: Yes Neurological History: No Pertinent History ENT History: Cataracts Cardiac History: High Cholesterol, Hypertension Respiratory History: No Pertinent History Endocrine Medical History: No Pertinent History Musculoskeletal History: Arthritis GI Medical History: GERD, Gallbladder Disease History: No Pertinent History Psycho-Social History: Anxiety, Depression Female Reproductive Disorders: No Pertinent History Other Medical History: Spinal Stenosis. diet controlled diabetes - Past Surgical History Past Surgical History: Yes Neuro Surgical History: No Pertinent History Cardiac: No Pertinent History Respiratory: No Pertinent History Gastrointestinal: Appendectomy, Cholecystectomy Genitourinary: No Pertinent History Musculoskeletal: Joint Replacement, Other Female Surgical History: Tubal Ligation Other Surgical History: Carpel Tunnel, Bilateral knee replacements - Social History Smoking Status: Former smoker Exposure to second hand smoke: No Alcohol Use: None Drug Use: none Patient Lives Alone: No Significant Family History: no pertinent family hx - Nursing Vital Signs Nursing Vital Signs: Initial Vital Signs Temperature 98.3 F 12/25/20 22:44 Pulse Rate 80 12/25/20 22:44 Respiratory Rate 18 12/25/20 22:44 Blood Pressure 172/81 12/25/20 22:44 O2 Sat by Pulse Oximetry 96 12/25/20 22:44 Pain Scale Pain Intensity 5 - Physical Exam General Appearance: no apparent distress, alert Eye Exam: PERRL/EOMI, eyes nml inspection, scleral icterus Neck Exam: normal inspection, non-tender, supple, other (No midline cervical spine tenderness, crepitus or stepoff) Respiratory Exam: normal breath sounds, lungs clear, airway intact, No chest tenderness, No respiratory distress, No diminished breath sounds Cardiovascular Exam: regular rate/rhythm, normal heart sounds, normal peripheral pulses, capillary refill <2 sec, other (Radial pulse 2+ bilaterally, capillary refill brisk in all fingers of the R hand), No murmur, No friction rub, No gallop Gastrointestinal/Abdomen Exam: soft, No tenderness Extremity Exam: swelling, tenderness, other (There is swelling and tenderness to the right wrist and the patient had difficulty flexing extending the wrist due to pain. She had pain upon palpation of the snuffbox on the right. Motor function was intact in the ulnar, median and radial nerve distributions of the right hand. There is no elbow ) Neurologic Exam: alert, oriented x 3, cooperative, other (Sensation was grossly intact to touch and equal in the ulnar, median and radial nerve distributions of the hands.) Skin Exam: normal color, warm, dry, No rash SpO2 Interpretation: normal O2 Delivery: Room Air - Course Nursing assessment & vital signs reviewed: Yes - Radiology Exams Wrist X-ray Interpretation: Interpreted by me, Reviewed by me, Teleradiologist Report (No acute fracture) Hand X-ray Interpretation: Interpreted by me, Reviewed by me, Teleradiologist Report (? chip fracture of the dorsal aspect of the middle phalanx of the 4th digit) Ordered Tests: Active Orders 24 hr Category Date Time Status Splint STAT Care 12/26/20 02:13 Completed HAND (MINIMUM 3 VIEWS) Stat Exams 12/26/20 00:01 Taken WRIST (MIN 3 VIEWS) Stat Exams 12/26/20 00:01 Taken Medication Summary Discontinued Medications Generic Name Dose Route Start Last Admin Trade Name Miguel A PRN Reason Stop Dose Admin Hydrocodone Bitart/Acetaminophen 2 tab 12/25/20 22:56 12/25/20 23:06 [place] 5/325 Mg PO 12/25/20 22:57 2 tab STAT ONE Administration Hydrocodone Bitart/Acetaminophen Confirm 12/25/20 23:06 [place] 5/325 Mg Administered 12/25/20 23:07 Dose 2 tab .ROUTE .STK-MED ONE - Progress Progress: improved Progress Note: 12/25/20 23:15 The patient presents with right wrist pain after a mechanical fall. She appears to have no evidence of head injury and her cervical spine seem to be intact and therefore I will defer neurocranial imaging including C-spine imaging at this time. I will obtain an x-ray of her right wrist and hand to eval for evidence of fracture or dislocation. I am highly concerned the patient may have a distal radius fracture. On the differential in addition to a possible scaphoid fracture. 12/26/20 02:17 X-rays show no evidence of acute fracture and the incidental finding of a possible chip fracture to the dorsal aspect of the middle phalanx of the fourth digit was likely an overread. On exam she had no tenderness or any swelling located to that digit. The patient is likely suffering from a sprained wrist. She will be provided a Velcro wrist splint for comfort and instructed to take Tylenol and/or ibuprofen as needed for pain. Should be instructed to follow-up with her primary care provider for further evaluation and management. Counseled pt/family regarding: diagnosis, need for follow-up, rad results - Departure Departure Disposition: Home Clinical Impression: Sprain of wrist, right, Fall Condition: Stable Critical Care Time: No Referrals: KATERINA DRISCOLL, [Primary Care Provider] - Instructions: Wrist Sprain (DC), Splint Care Additional Instructions: Please take Tylenol and/or ibuprofen as needed for any ongoing pain. You can purchase these medications [id number]. Please take these medications as instructed on the medication bottles.
[2020-12-25] MEDS ORDERED: NORCO 5/325 MG ONE (23:06)
[2020-12-26 02:21] VITALS: BP 112/47; PULSE 64; O2SAT 96
--- NOTE | 2020-12-26 09:13 | XRAY ---
Indication: Pain following fall. Comparison: None 3 view right wrist demonstrates mild osteopenia, moderate/advanced degenerative changes 1st metacarpal multangular scaphoid articulation, mild radiocarpal joint space narrowing, radial ulnar carpal degenerative chondrocalcinosis, and mild widening scapholunate interval. No other bony, articular, or soft tissue abnormalities. Comment: Preliminary interpretation was made by [facility]. No critical discrepancy.
--- NOTE | 2020-12-26 09:15 | XRAY ---
Indication: Pain following fall. Comparison: None 3 view right dand demonstrates mild osteopenia, moderate/advanced degenerative changes 1st metacarpal multangular scaphoid articulation, mild/moderate degenerative changes of all IP joints with tiny heterotopic ossifications, and mild degenerative changes all MCP joints. No other bony, articular, or soft tissue abnormalities. Wrist reported separately. Comment: Preliminary interpretation was made by [facility]. No critical discrepancy.
== END 2020-12-26 02:29 | disposition home or self-care (01) ==
LOC: ED 22:31
DX: S63.501A Unspecified sprain of right wrist, initial encounter (principal); M25.531 Pain in right wrist; W01.10XA Fall on same level from slipping, tripping and stumbling with subsequent striking against unspecified object, initial encounter; Y92.009 Unspecified place in unspecified non-institutional (private) residence as the place of occurrence of the external cause; Z79.899 Other long term (current) drug therapy; I10 Essential (primary) hypertension; E78.00 Pure hypercholesterolemia, unspecified; Z96.82 Presence of neurostimulator
CPT/HCPCS: 73110; 73130; 99284; L3908; A9270-GY

== ENCOUNTER 2021-11-30 14:14 | Emergency (ER) | payer MEDICARE ==
--- NOTE | 2021-11-30 14:31 | ERPHSYRPT ---
- History of Present Illness Time Seen by Provider: 11/30/21 14:17 Source: patient, family Exam Limitations: no limitations Physician History: This is an 81-year-old white female who fell outside of a local restaurant hitting her head, right side of her face/cheek and right anterior knee. She did not lose consciousness but she does have a headache. She denies neck pain. She is not on any anticoagulation therapy. Patient does have a history of gastroesophageal reflux disease, hypertension, elevated cholesterol and gout. Occurred: just prior to arrival Reason for Fall: tripped Injuries/Pain Location: head, face, lower extremity (Right anterior knee) Loss of Consciousness: no loss of consciousness Quality: aching Severity of Pain-Max: mild Severity of Pain-Current: mild Modifying Factors: Improves With: movement Associated Symptoms (Fall): extremity injury (Right anterior knee), headache, No neck pain Allergies/Adverse Reactions: No Known Drug Allergies Allergy (Verified 11/30/21 14:23) Home Medications: Furosemide 40 mg [Lasix 40 MG] 40 mg PO DAILY 11/22/12 [History] Potassium Chloride [Micro-K] 8 meq PO DAILY 11/22/12 [History] Allopurinol 100 mg [Zyloprim 100 mg] 100 mg PO DAILY 06/18/17 [History] Atorvastatin Calcium [Lipitor] 40 mg PO DAILY 06/18/17 [History] Cyclobenzaprine HCl 10 mg [Cyclobenzaprine 10 MG] 10 mg PO [id number] PRN 06/18/17 [History] Metoprolol Tartrate [Lopressor] 100 mg PO BID 06/18/17 [History] Omeprazole 20 MG [Prilosec 20 mg] 20 mg PO DAILY 06/18/17 [History] Oxybutynin Chloride Xl 5 mg [Ditropan XL 5 MG] 5 mg PO BIDPRN PRN 06/18/17 [History] lisinopriL [Zestril] 40 mg PO DAILY 06/18/17 [History] Hx Tetanus, Diphtheria Vaccination/Date Given: Yes Hx Influenza Vaccination/Date Given: Yes Hx Pneumococcal Vaccination/Date Given: Yes Travel Risk - International Travel Have you traveled outside of the country in past 3 weeks: No - Coronavirus Screening Are you exhibiting any of the following symptoms?: No Close contact with a COVID-19 positive Pt in past 14-21 Days: No - Vaccine Status Have you recieved a Covid-19 vaccination: Yes Supervisor Pleating: Moderna - Vaccination Dates Date of 2cond Vaccination (if applicable): 09/12/20 - Review of Systems Constitutional: No Symptoms Eyes: Other (Right periorbital soft tissue swelling.) Ears, Nose, & Throat: No Symptoms Respiratory: No Symptoms Cardiac: No Symptoms Abdominal/Gastrointestinal: No Symptoms Genitourinary Symptoms: No Symptoms Musculoskeletal: Injury (Right anterior knee) Skin: No Symptoms Neurological: No Symptoms Psychological: No Symptoms Endocrine: No Symptoms Hematologic/Lymphatic: No Symptoms Immunological/Allergic: No Symptoms All Other Systems: Reviewed and Negative - Past Medical History Pertinent Past Medical History: Yes Neurological History: Peripheral Neuropathy ENT History: Cataracts Cardiac History: Hypertension Respiratory History: No Pertinent History Endocrine Medical History: Diabetes Type II Musculoskeletal History: Osteoarthritis GI Medical History: GERD, Gallbladder Disease History: No Pertinent History Psycho-Social History: Anxiety, Depression Female Reproductive Disorders: No Pertinent History Other Medical History: PT HAS AN INHALER AND USES NEEDED. INTERNAL TENS FOR HER BACK. PT NOTES HER DOG BIT HER IN HER L BIG TOE, ALSO THINKS SHE HAS GOUT IN THE R FOOT. B TKA. - Past Surgical History Past Surgical History: Yes Neuro Surgical History: No Pertinent History Cardiac: No Pertinent History Respiratory: No Pertinent History Gastrointestinal: Appendectomy, Cholecystectomy Genitourinary: No Pertinent History Musculoskeletal: Joint Replacement, Other Female Surgical History: Tubal Ligation Other Surgical History: Carpel Tunnel, Bilateral knee replacements - Social History Smoking Status: Former smoker Exposure to second hand smoke: No Alcohol Use: None Drug Use: none Patient Lives Alone: No Significant Family History: no pertinent family hx - Nursing Vital Signs Nursing Vital Signs: Initial Vital Signs Temperature 97.2 F 11/30/21 14:16 Pulse Rate 78 11/30/21 14:16 Respiratory Rate 18 11/30/21 14:16 Blood Pressure 137/69 11/30/21 14:16 O2 Sat by Pulse Oximetry 98 11/30/21 14:16 Pain Scale Pain Intensity 3 - Veronica Coma Score Best Eye Response (Veronica): (4) open spontaneously Best Verbal Response ([place]): (5) oriented Best Motor Response (Veronica): (6) obeys commands [place] Total: 15 - Physical Exam General Appearance: no apparent distress Head Injury: no evidence of injury Eye Exam: PERRL/EOMI, other (Right periorbital soft tissue swelling) ENT Exam: airway nml, nml ext.inspection, hearing grossly normal, other (Soft tissue swelling right side of nose), No evidence of ENT injury Neck Exam: supple, trachea midline, full range of motion, normal alignment, normal inspection Respiratory/Chest Exam: normal breath sounds, No chest tenderness, No respiratory distress, No ecchymosis, No crepitus Cardiovascular Exam: normal heart sounds, regular rate/rhythm Gastrointestinal Exam: soft, normal bowel sounds, No tenderness Rectal Exam: not done Back Exam: normal inspection, normal range of motion, No CVA tenderness, No vertebral tenderness Extremity Exam: normal range of motion, pelvis stable, tenderness (Anterior right knee) Neurologic Exam: alert, oriented x 3, cooperative, 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 Right knee.) SpO2 Interpretation: normal O2 Delivery: Room Air Ordered Tests: Active Orders 24 hr Category Date Time Status FACIAL BONES WO CONTRAST [CT] Stat Exams 11/30/21 15:24 Completed HEAD WITHOUT CONTRAST [CT] Stat Exams 11/30/21 15:24 Completed KNEE (3 VIEWS) Stat Exams 11/30/21 15:24 Completed - Progress Progress: unchanged, pain not gone completely, re-examined Progress Note: 11/30/21 17:03 X-ray of right knee shows no acute fracture or dislocation. The total knee arthroplasty is intact. CAT scan of the head without contrast shows right supraorbital soft tissue swelling. No acute intracranial abnormalities. Facial bones CT shows minimally depressed right nasal bone fracture with soft tissue swelling. Counseled pt/family regarding: diagnosis, need for follow-up, rad results - Departure Departure Disposition: Home Clinical Impression: Fall with injury, Facial abrasion, Nasal bone fracture Condition: Stable Critical Care Time: No Referrals: KATERINA DRISCOLL DO [Primary Care Provider] - Follow up/PCP as directed Additional Instructions: Ice pack to tender, swollen areas 3 times a day for the next 48 hours. Use antibiotic ointment of choice to the abrasion sites. Use Tylenol and ibuprofen, if there are no contraindications, for pain control. Follow-up with your primary care provider if your symptoms persist.
--- NOTE | 2021-11-30 16:26 | XRAY ---
Indication: Right periorbital swelling following fall. Multiple contiguous axial images obtained through the head without contrast. Comparison: None Age-appropriate global atrophy and mild/moderate periventricular degenerative micro-ischemia bilaterally. No acute intracranial hemorrhage, abnormal extra-axial fluid collection, or mass effect. Fourth ventricle is midline without hydrocephalus. Guidry-white matter differentiation preserved. Mild right supraorbital soft tissue swelling. Bony calvarium intact. Paranasal sinuses and mastoid air cells are clear. Impression: Right supraorbital soft tissue swelling. Otherwise nonacute senile brain.
--- NOTE | 2021-11-30 16:30 | XRAY ---
Indication: Right periorbital swelling following fall. Multiple contiguous axial images obtained through the facial bones. Sagittal and coronal reformatted images obtained. Comparison: None Mild right supraorbital soft tissue swelling. Minimally depressed right nasal bone fracture with soft tissue swelling. No other acute fracture, suspicious bony lesions, or radiopaque foreign body. Orbits including roof, valentine, and floors intact. Paranasal sinuses and nasal passages are clear. Mild nasal septal deviation to the left. Patient is edentulous. Moderate/advanced degenerative changes of the visualized cervical spine. Moderate bilateral carotid calcifications. Remaining visualized noncontrasted soft tissues unremarkable. Impression: 1. Minimally depressed right nasal bone fracture with soft tissue swelling and right supraorbital soft tissue swelling. 2. Incidental nasal septal deviation, multilevel cervical degenerative changes, and bilateral carotid calcifications.
--- NOTE | 2021-11-30 16:32 | XRAY ---
Indication: Pain and contusion following fall. Comparison: None 3 view right knee demonstrates osteopenia, total knee arthroplasty with intact prosthesis, and mild scattered vascular calcifications. No other bony, articular, or soft tissue abnormalities.
[2021-11-30 17:35] VITALS: BP 106/50; PULSE 68; O2SAT 98
== END 2021-11-30 17:05 | disposition home or self-care (01) ==
LOC: ED 14:14
DX: S02.2XXA Fracture of nasal bones, initial encounter for closed fracture (principal); W19.XXXA Unspecified fall, initial encounter; S00.81XA Abrasion of other part of head, initial encounter; M25.561 Pain in right knee; R51.9 Headache, unspecified; I10 Essential (primary) hypertension; E78.5 Hyperlipidemia, unspecified; E11.42 Type 2 diabetes mellitus with diabetic polyneuropathy; Z79.899 Other long term (current) drug therapy
CPT/HCPCS: 70450; 70486; 73562; 99284

== ENCOUNTER 2023-12-06 13:03 | Emergency (ER) | payer MEDICARE ==
[2023-12-06 13:53] VITALS: TEMP 98.4
--- NOTE | 2023-12-06 14:40 | ERPHSYRPT ---
- History of Present Illness Time Seen by Provider: 12/06/23 14:25 Source: family Exam Limitations: clinical condition Patient Subjective Stated Complaint: Daughter states that the pt began having visual hallucincations this morning, pt states that it's when her eyes are c losed she sees things and then when she opens them, it isn't there Triage Nursing Assessment: Pt brought to the ER by her daughter, vitals wnl, rates pain as 10/10, daughter states that the pt was looking at the wall and made her daughter "wipe all the bugs away" that weren't really there, she then said "well you missed them, they have all ran away, pt is also having visual hallucinations with her eyes closed, a couple of weeks ago the pt thought she was sewing by hand all day although she didn't have anything in her hands, then a couple of days ago she began doing and saying things again that really wasn't there, pt has not started any new meds Physician History: The patient, with a history of a shoulder injury, presents with new onset griggs llucinations. She reports seeing bugs on the wall and a piece of a car in a tree with a man in it. These hallucinations have been occurring for the past day. The patient's family member notes that the patient has been talking in her sleep but has never hallucinated before. The patient has not been on any pain medication for the past two and a half days. In addition to the hallucinations, the patient has been experiencing pain in her previously injured shoulder. The injury occurred in May, and the patient suspects she may have re-injured it. The pain is located in the top part of her left shoulder. The patient also reports a recent episode of tachycardia with a heart rate of 155. She described feeling like her heart was "beating out of her chest" and had difficulty breathing. The episode resolved with rest and use of an inhaler. The patient denies any changes in the color or smell of her urine. She has not had any new medications added or removed recently. She also denies any abdominal pain or fever. Timing/Duration: day(s) (4) Severity: moderate Character of Deficits: other (ams, hallucination) Deficits: no difficulties Baseline/Normal Cognition: alert oriented x 3 Current Cognition: alert but confused Baseline Gait: walks w/o assistance Associated Symptoms: confusion, muscle spasms, No fever, No chills, No loss of consciousness, No nausea, No vomiting, No weakness, No numbness/tingling in legs/feet, No slurred speech Allergies/Adverse Reactions: No Known Drug Allergies Allergy (Verified 12/06/23 13:53) Home Medications: Furosemide 40 mg [Lasix 40 MG] 40 mg PO DAILY 11/22/12 [History] Allopurinol 100 mg [Zyloprim 100 mg] 400 mg PO DAILY 06/18/17 [History] Atorvastatin Calcium [Lipitor] 40 mg PO DAILY 06/18/17 [History] Metoprolol Tartrate [Lopressor] 100 mg PO BID 06/18/17 [History] Omeprazole 20 MG [Prilosec 20 mg] 20 mg PO DAILY 06/18/17 [History] lisinopriL [Zestril] 40 mg PO DAILY 06/18/17 [History] Empagliflozin [Jardiance] 25 mg PO DAILY 12/06/23 [History] Gabapentin [Neurontin] 300 mg PO BID 12/06/23 [History] Magnesium Citrate and Oxide [Magnesium] 250 mg PO BID 12/06/23 [History] Ropinirole HCl 2 mg PO HS 12/06/23 [History] Vibegron [Gemtesa] 75 mg PO DAILY 12/06/23 [History] Hx Tetanus, Diphtheria Vaccination/Date Given: Yes Hx Influenza Vaccination/Date Given: Yes Hx Pneumococcal Vaccination/Date Given: Yes Travel Risk - International Travel Have you traveled outside of the country in past 3 weeks: No - Emerging Infectious Disease Are you exhibiting symptoms associated with any current EIDs: No - Review of Systems All Other Systems: Reviewed and Negative - Past Medical History Pertinent Past Medical History: Yes Neurological History: Peripheral Neuropathy ENT History: Cataracts Cardiac History: Hypertension Respiratory History: No Pertinent History Endocrine Medical History: Diabetes Type II Musculoskeletal History: Osteoarthritis GI Medical History: GERD, Gallbladder Disease History: No Pertinent History Psycho-Social History: Anxiety, Depression Female Reproductive Disorders: No Pertinent History Other Medical History: PT HAS AN INHALER AND USES NEEDED. INTERNAL TENS FOR HER BACK. PT NOTES HER DOG BIT HER IN HER L BIG TOE, ALSO THINKS SHE HAS GOUT IN THE R FOOT. B TKA. - Past Surgical History Past Surgical History: Yes Neuro Surgical History: No Pertinent History Cardiac: No Pertinent History Respiratory: No Pertinent History Gastrointestinal: Appendectomy, Cholecystectomy Genitourinary: No Pertinent History Musculoskeletal: Joint Replacement, Other Female Surgical History: Tubal Ligation Other Surgical History: Carpel Tunnel, Bilateral knee replacements Significant Family History: no pertinent family hx - Social History Smoking Status: Former smoker Exposure to second hand smoke: No Alcohol Use: None Drug Use: none Patient Lives Alone: No - Social Determinants of Health Will the patient participate in the screening: Yes Do you worry about a steady place to live?: No Do you have any problems with any of the following?: No known problems In the past 12 months,have you had to go without utilities?: No Transportation Issues: No Has anyone in your support network made you feel unsafe?: No Have you or anyone in your house had to go without enough: No - Nursing Vital Signs Nursing Vital Signs: Initial Vital Signs Temperature 98.4 F 12/06/23 13:37 Pulse Rate 67 12/06/23 13:37 Blood Pressure 116/69 12/06/23 13:37 O2 Sat by Pulse Oximetry 95 12/06/23 13:37 Pain Scale Pain Intensity 0 - [place] Coma Scale Best Eye Response (Veronica): (4) open spontaneously Best Verbal Response ([place]): (4) confused conversation Best Motor Response (Veronica): (6) obeys commands Veronica Total: 14 - Physical Exam General Appearance: no apparent distress, obese Eye Exam: bilateral eye: normal inspection, PERRL, EOMI Ears, Nose, Throat Exam: normal ENT inspection Neck Exam: normal inspection, non-tender, supple, full range of motion Respiratory: airway intact, No respiratory distress Cardiovascular: regular rate/rhythm, capillary refill <2 sec Gastrointestinal: soft, No tenderness Extremity Exam: limited range of motion (left shoulder), swelling (left shoulder), tenderness (left shoulder) Mental Status: alert, cooperative supervisor channel process Exam: normal hearing, normal speech, PERRL, tongue midline Coordination/Gait: normal cerebellar function Motor/Sensory: no motor deficit, no sensory deficit, no pronator drift Skin Exam: normal color, warm, dry SpO2 Interpretation: normal SpO2: 95 O2 Delivery: Room Air - Course Nursing assessment & vital signs reviewed: Yes - CT Exams Head CT Interpretation: Tele-radiologist Report, No/Intracranial Hemorrhag Upper Extremity CT Interpretation: Tele-radiologist Report, Other (calcified abscess of deltoid/infraspinatus region, osseous destruction of scapula) Ordered Tests: Active Orders 24 hr Category Date Time Status IV Insertion STAT Care 12/06/23 14:40 Active Pulse Oximetry (ED) STAT Care 12/06/23 14:40 Active cath [Cath for Specimen-Straight] STAT Care 12/06/23 13:38 Active HEAD WITHOUT CONTRAST [CT] Stat Exams 12/06/23 16:13 Taken SHOULDER Stat Exams 12/06/23 14:40 Completed UPPER EXTREMITY W CONTRAST [CT] Stat Exams 12/06/23 18:16 Taken CBC W DIFF Stat Lab 12/06/23 14:55 Completed CK (IN-HOUSE) [CK-Creatinine Phosphokinase] Stat Lab 12/06/23 17:12 Completed CMP Stat Lab 12/06/23 14:55 Completed CULTURE,URINE Stat Lab 12/06/23 13:38 Ordered Calcium, Ionized Stat Lab 12/06/23 16:55 Completed ESR [Erythrocyte Sedimentation Rate] Stat Lab 12/06/23 14:55 Completed LIPASE Stat Lab 12/06/23 17:28 Completed LIPID PROFILE Stat Lab 12/06/23 17:11 Completed Lactic Acid Stat Lab 12/06/23 15:00 Completed Lactic Acid Stat Lab 12/06/23 17:02 Completed PHOSPHOROUS Stat Lab 12/06/23 17:28 Completed TSH, 3RD Generation Stat Lab 12/06/23 14:55 Completed UA W/RFX UR CULTURE Stat Lab 12/06/23 13:38 Completed Vitamin B12 Stat Lab 12/06/23 14:55 Completed Medication Summary Generic Name Dose Route Start Last Admin Trade Name Freq PRN Reason Stop Dose Admin Vancomycin HCl 2 gm in 400 mls @ 133.333 mls/hr 12/06/23 23:06 Vancomycin 2 Gram/400 Ml Bag IV 12/07/23 02:05 STAT ONE Piperacillin Sod/Tazobactam 100 mls @ 200 mls/hr 12/06/23 23:07 12/06/23 23:12 Sod 3.375 gm/ Sodium Chloride IV 12/06/23 23:36 200 mls/hr STAT ONE Administration Discontinued Medications Generic Name Dose Route Start Last Admin Trade Name Freq PRN Reason Stop Dose Admin Sodium Chloride 1,000 mls @ 999 mls/hr 12/06/23 16:12 12/06/23 17:26 Sodium Chloride 0.9% 1000 Ml IV 12/06/23 17:12 Infused .Q1H1M STA Infusion Ceftriaxone Sodium 2 gm in 100 mls @ 200 mls/hr 12/06/23 16:13 12/06/23 16:56 Rocephin 2 Gm/100 Ml Nacl IV 12/06/23 16:42 Infused STAT ONE Infusion Sodium Chloride Confirm 12/06/23 16:23 Sodium Chloride 0.9% 1000 Ml Administered 12/06/23 16:24 Dose 1,000 mls @ ud .ROUTE .STK-MED ONE Ceftriaxone Sodium Confirm 12/06/23 16:23 Rocephin 2 Gm/100 Ml Nacl Administered 12/06/23 16:24 Dose 2 gm in 100 mls @ ud IV .STK-MED ONE Sodium Chloride Confirm 12/06/23 23:09 Sodium Chloride 100ml Mini-Bag Plus Administered 12/06/23 23:10 Dose 100 mls @ ud IV .STK-MED ONE Vancomycin HCl Confirm 12/06/23 23:14 Vancomycin 2 Gram/400 Ml Bag Administered 12/06/23 23:15 Dose 2 gm in 400 mls @ ud IV .STK-MED ONE Ketorolac Tromethamine 30 mg 12/06/23 19:40 12/06/23 19:42 Ketorolac Tromethamine 30 Mg/Ml Inj IV 12/06/23 19:41 30 mg STAT ONE Administration Ketorolac Tromethamine Confirm 12/06/23 19:42 Ketorolac Tromethamine 30 Mg/Ml Inj Administered 12/06/23 19:43 Dose 30 mg .ROUTE .STK-MED ONE Lidocaine HCl Confirm 12/06/23 17:41 Lidocaine Hcl 1% 20 Ml Mdv 20 Ml Ml Administered 12/06/23 17:42 Dose 5 ml .ROUTE .STK-MED ONE Lidocaine HCl 5 ml 12/06/23 18:20 12/06/23 18:21 Lidocaine Hcl 1% 20 Ml Mdv 20 Ml Ml IJ 12/06/23 18:21 5 ml STAT ONE Administration Piperacillin Sod/Tazobactam Sod Confirm 12/06/23 23:09 Piperacillin/Tazobactam Sodium 3.375 Gm Vial Administered 12/06/23 23:10 Dose 3.375 gm IV .STK-MED ONE Lab/Rad Data: Laboratory Result Diagrams 12/06/23 14:55 12/06/23 14:55 Laboratory Results 12/06/23 12/06/23 12/06/23 Range/Units 17:28 17:12 17:11 WBC (3.98-10.04) x10^3/uL RBC (3.93-5.22) x10^6/uL Hgb (11.2-15.7) g/dL Hct (34.1-44.9) % MCV (79.4-94.8) fL MCH (25.6-32.2) pg MCHC (32.2-35.5) g/dL RDW (11.7-14.4) % Plt Count (182-369) x10^3/uL MPV (9.4-12.3) fL Gran % (34.0-71.1) % Immature Gran % (Auto) (0.001-0.429) % Nucleat RBC Rel Count (0.00-0.2) % Eos # (Auto) (0.04-0.36) x10^3/uL Immature Gran # (Auto) (0.001-0.031) x10^3u/L Absolute Lymphs (auto) (1.18-3.74) x10^3/uL Absolute Monos (auto) (0.24-0.86) x10^3/uL Absolute Nucleated RBC (0.00-0.012) x10^3u/L Lymphocytes % (19.3-51.7) % Monocytes % (4.7-12.5) % Eosinophils % (0.7-5.8) % Basophils % (0.1-1.2) % Absolute Granulocytes (1.56-6.13) x10^3/uL Basophils # (0.01-0.08) x10^3/uL ESR (0-20) mm/hr Ionized Calcium (1.12-1.32) mmol/L Sodium (135-145) mmol/L Potassium (3.5-5.1) mmol/L Chloride (98-107) mmol/L Carbon Dioxide (22-30) mmol/L Anion Gap (5-15) MEQ/L BUN (7-17) mg/dL Creatinine (0.52-1.04) mg/dL Estimated GFR ML/MIN Glucose (74-106) mg/dL Lactic Acid (0.4-2.0) Calcium (8.4-10.2) mg/dL Phosphorus 4.3 (2.5-4.5) mg/dL Total Bilirubin (0.2-1.3) mg/dL AST (14-36) U/L ALT (0-35) U/L Alkaline Phosphatase (38-126) U/L Ammonia (9-30) umol/L Creatine Kinase 62 (30-135) U/L Serum Total Protein (6.3-8.2) g/dL Albumin (3.5-5.0) g/dL Triglycerides 270 H (30-150) mg/dL Cholesterol 204 H (50-200) mg/dL LDL Cholesterol 112 H (30-100) mg/dL HDL Cholesterol 42 (40-60) mg/dL Heart Disease Risk Ratio 5.0 Lipase 43 (23-300) U/L Vitamin B12 (239-931) pg/mL TSH 3rd Generation (0.470-4.680) mIU/L Urine Color (Yellow) Urine Appearance (Clear) Urine pH (4.6-8.0) Ur Specific [place] (1.005-1.030) Urine Protein (Negative) Urine Glucose (UA) (Negative) mg/dL Urine Ketones (Negative) Urine Blood (Negative) Urine Nitrite (Negative) Urine Bilirubin (Negative) Urine Urobilinogen (0.2) mg/dL Ur Leukocyte Esterase (Negative) U Hyaline Cast (Auto) (0-2) /LPF Urine Microscopic RBC (0-5) /HPF Urine Microscopic WBC (0-5) /HPF Ur Epithelial Cells (None Seen) /HPF Urine Bacteria (None Seen) /HPF Urine Culture Reflexed (NO) 12/06/23 12/06/23 12/06/23 Range/Units 17:02 16:55 15:00 WBC (3.98-10.04) x10^3/uL RBC (3.93-5.22) x10^6/uL Hgb (11.2-15.7) g/dL Hct (34.1-44.9) % MCV (79.4-94.8) fL MCH (25.6-32.2) pg MCHC (32.2-35.5) g/dL RDW (11.7-14.4) % Plt Count (182-369) x10^3/uL MPV (9.4-12.3) fL Gran % (34.0-71.1) % Immature Gran % (Auto) (0.001-0.429) % Nucleat RBC Rel Count (0.00-0.2) % Eos # (Auto) (0.04-0.36) x10^3/uL Immature Gran # (Auto) (0.001-0.031) x10^3u/L Absolute Lymphs (auto) (1.18-3.74) x10^3/uL Absolute Monos (auto) (0.24-0.86) x10^3/uL Absolute Nucleated RBC (0.00-0.012) x10^3u/L Lymphocytes % (19.3-51.7) % Monocytes % (4.7-12.5) % Eosinophils % (0.7-5.8) % Basophils % (0.1-1.2) % Absolute Granulocytes (1.56-6.13) x10^3/uL Basophils # (0.01-0.08) x10^3/uL ESR (0-20) mm/hr Ionized Calcium 1.24 (1.12-1.32) mmol/L Sodium (135-145) mmol/L Potassium (3.5-5.1) mmol/L Chloride (98-107) mmol/L Carbon Dioxide (22-30) mmol/L Anion Gap (5-15) MEQ/L BUN (7-17) mg/dL Creatinine (0.52-1.04) mg/dL Estimated GFR ML/MIN Glucose (74-106) mg/dL Lactic Acid 2.8 H 2.9 H (0.4-2.0) Calcium (8.4-10.2) mg/dL Phosphorus (2.5-4.5) mg/dL Total Bilirubin (0.2-1.3) mg/dL AST (14-36) U/L ALT (0-35) U/L Alkaline Phosphatase (38-126) U/L Ammonia (9-30) umol/L Creatine Kinase (30-135) U/L Serum Total Protein (6.3-8.2) g/dL Albumin (3.5-5.0) g/dL Triglycerides (30-150) mg/dL Cholesterol (50-200) mg/dL LDL Cholesterol (30-100) mg/dL HDL Cholesterol (40-60) mg/dL Heart Disease Risk Ratio Lipase (23-300) U/L Vitamin B12 (239-931) pg/mL TSH 3rd Generation (0.470-4.680) mIU/L Urine Color (Yellow) Urine Appearance (Clear) Urine pH (4.6-8.0) Ur Specific [place] (1.005-1.030) Urine Protein (Negative) Urine Glucose (UA) (Negative) mg/dL Urine Ketones (Negative) Urine Blood (Negative) Urine Nitrite (Negative) Urine Bilirubin (Negative) Urine Urobilinogen (0.2) mg/dL Ur Leukocyte Esterase (Negative) U Hyaline Cast (Auto) (0-2) /LPF Urine Microscopic RBC (0-5) /HPF Urine Microscopic WBC (0-5) /HPF Ur Epithelial Cells (None Seen) /HPF Urine Bacteria (None Seen) /HPF Urine Culture Reflexed (NO) 12/06/23 12/06/23 12/06/23 Range/Units 14:55 14:55 14:55 WBC (3.98-10.04) x10^3/uL RBC (3.93-5.22) x10^6/uL Hgb (11.2-15.7) g/dL Hct (34.1-44.9) % MCV (79.4-94.8) fL MCH (25.6-32.2) pg MCHC (32.2-35.5) g/dL RDW (11.7-14.4) % Plt Count (182-369) x10^3/uL MPV (9.4-12.3) fL Gran % (34.0-71.1) % Immature Gran % (Auto) (0.001-0.429) % Nucleat RBC Rel Count (0.00-0.2) % Eos # (Auto) (0.04-0.36) x10^3/uL Immature Gran # (Auto) (0.001-0.031) x10^3u/L Absolute Lymphs (auto) (1.18-3.74) x10^3/uL Absolute Monos (auto) (0.24-0.86) x10^3/uL Absolute Nucleated RBC (0.00-0.012) x10^3u/L Lymphocytes % (19.3-51.7) % Monocytes % (4.7-12.5) % Eosinophils % (0.7-5.8) % Basophils % (0.1-1.2) % Absolute Granulocytes (1.56-6.13) x10^3/uL Basophils # (0.01-0.08) x10^3/uL ESR 105 H (0-20) mm/hr Ionized Calcium (1.12-1.32) mmol/L Sodium 129 L (135-145) mmol/L Potassium 4.0 (3.5-5.1) mmol/L Chloride 93 L (98-107) mmol/L Carbon Dioxide 33 H (22-30) mmol/L Anion Gap 7.3 (5-15) MEQ/L BUN 18 H (7-17) mg/dL Creatinine 0.93 (0.52-1.04) mg/dL Estimated GFR 61.0 ML/MIN Glucose 170 H (74-106) mg/dL Lactic Acid (0.4-2.0) Calcium 11.6 H (8.4-10.2) mg/dL Phosphorus (2.5-4.5) mg/dL Total Bilirubin 0.80 (0.2-1.3) mg/dL AST 29 (14-36) U/L ALT 21 (0-35) U/L Alkaline Phosphatase 131 H (38-126) U/L Ammonia < 9 L (9-30) umol/L Creatine Kinase (30-135) U/L Serum Total Protein 7.5 (6.3-8.2) g/dL Albumin 4.1 (3.5-5.0) g/dL Triglycerides (30-150) mg/dL Cholesterol (50-200) mg/dL LDL Cholesterol (30-100) mg/dL HDL Cholesterol (40-60) mg/dL Heart Disease Risk Ratio Lipase (23-300) U/L Vitamin B12 > 961 H (239-931) pg/mL TSH 3rd Generation 2.793 (0.470-4.680) mIU/L Urine Color (Yellow) Urine Appearance (Clear) Urine pH (4.6-8.0) Ur Specific [place] (1.005-1.030) Urine Protein (Negative) Urine Glucose (UA) (Negative) mg/dL Urine Ketones (Negative) Urine Blood (Negative) Urine Nitrite (Negative) Urine Bilirubin (Negative) Urine Urobilinogen (0.2) mg/dL Ur Leukocyte Esterase (Negative) U Hyaline Cast (Auto) (0-2) /LPF Urine Microscopic RBC (0-5) /HPF Urine Microscopic WBC (0-5) /HPF Ur Epithelial Cells (None Seen) /HPF Urine Bacteria (None Seen) /HPF Urine Culture Reflexed (NO) 12/06/23 12/06/23 Range/Units 14:55 13:38 WBC 9.0 (3.98-10.04) x10^3/uL RBC 4.30 (3.93-5.22) x10^6/uL Hgb 11.6 (11.2-15.7) g/dL Hct 35.9 (34.1-44.9) % MCV 83.5 (79.4-94.8) fL MCH 27.0 (25.6-32.2) pg MCHC 32.3 (32.2-35.5) g/dL RDW 16.5 H (11.7-14.4) % Plt Count 342 (182-369) x10^3/uL MPV 9.7 (9.4-12.3) fL Gran % 69.6 (34.0-71.1) % Immature Gran % (Auto) 0.3 (0.001-0.429) % Nucleat RBC Rel Count 0.0 (0.00-0.2) % Eos # (Auto) 0.15 (0.04-0.36) x10^3/uL Immature Gran # (Auto) 0.03 (0.001-0.031) x10^3u/L Absolute Lymphs (auto) 1.84 (1.18-3.74) x10^3/uL Absolute Monos (auto) 0.67 (0.24-0.86) x10^3/uL Absolute Nucleated RBC 0.00 (0.00-0.012) x10^3u/L Lymphocytes % 20.5 (19.3-51.7) % Monocytes % 7.5 (4.7-12.5) % Eosinophils % 1.7 (0.7-5.8) % Basophils % 0.4 (0.1-1.2) % Absolute Granulocytes 6.24 H (1.56-6.13) x10^3/uL Basophils # 0.04 (0.01-0.08) x10^3/uL ESR (0-20) mm/hr Ionized Calcium (1.12-1.32) mmol/L Sodium (135-145) mmol/L Potassium (3.5-5.1) mmol/L Chloride (98-107) mmol/L Carbon Dioxide (22-30) mmol/L Anion Gap (5-15) MEQ/L BUN (7-17) mg/dL Creatinine (0.52-1.04) mg/dL Estimated GFR ML/MIN Glucose (74-106) mg/dL Lactic Acid (0.4-2.0) Calcium (8.4-10.2) mg/dL Phosphorus (2.5-4.5) mg/dL Total Bilirubin (0.2-1.3) mg/dL AST (14-36) U/L ALT (0-35) U/L Alkaline Phosphatase (38-126) U/L Ammonia (9-30) umol/L Creatine Kinase (30-135) U/L Serum Total Protein (6.3-8.2) g/dL Albumin (3.5-5.0) g/dL Triglycerides (30-150) mg/dL Cholesterol (50-200) mg/dL LDL Cholesterol (30-100) mg/dL HDL Cholesterol (40-60) mg/dL Heart Disease Risk Ratio Lipase (23-300) U/L Vitamin B12 (239-931) pg/mL TSH 3rd Generation (0.470-4.680) mIU/L Urine Color Yellow (Yellow) Urine Appearance Clear (Clear) Urine pH 7.0 (4.6-8.0) Ur Specific [place] 1.015 (1.005-1.030) Urine Protein Negative (Negative) Urine Glucose (UA) >=1000 A (Negative) mg/dL Urine Ketones Negative (Negative) Urine Blood Negative (Negative) Urine Nitrite Negative (Negative) Urine Bilirubin Negative (Negative) Urine Urobilinogen 0.2 (0.2) mg/dL Ur Leukocyte Esterase Moderate A (Negative) U Hyaline Cast (Auto) NONE SEEN (0-2) /LPF Urine Microscopic RBC 0-2 (0-5) /HPF Urine Microscopic WBC 0-2 (0-5) /HPF Ur Epithelial Cells Rare (None Seen) /HPF Urine Bacteria Rare A (None Seen) /HPF Urine Culture Reflexed ORDERED SEPARATELY (NO) - Progress Progress: improved Progress Note: Patient presents with acute delirium of unknown etiology. Initial laboratory evaluation showed an elevated lactate of 2.9 with normal vital signs and a normal white blood cell count. She had hyponatremia at 129. She was also found to have hypercalcemia at 11.6 with an elevated alk phos. No history of previous cancer. Patient's UA did show moderate leukocyte Estrace with rare bacteria for which Rocephin was started. CT of the head was unremarkable. Patient continued to have left shoulder pain however left shoulder x-ray showed no significant change from previous. Decision was made to obtain an ESR which was elevated 105. This prompted further investigation of the left shoulder with ultrasound at bedside which showed what appeared to be an abscess within and above the left shoulder joint. Attempted aspiration, but aspirate too thick. CT scan of the left shoulder was obtained which showed a large calcified abscess in the deltoid infraspinatus region with osseous destruction of the nearby scapula. [facility] on-call orthopedic doctor was contacted for consultation as the patient sees Dr. Peters. 12/06/23 21:23 Dr. Peralta agrees to consult for I&D at 2123. Waiting on hospitalist. 12/06/23 23:06 Dr. Payton accepts admission at 2306. Discussed with Dr.: Other (Tata Peralta) Will see patient in: hospital (observation) Counseled pt/family regarding: lab results, diagnosis, need for follow-up, rad results Medical Desision Making - Independent Historian Additional History obtained from: Child - Discussion of managment Care discussed with:: specialist (Dr. Peralta) Reviewed:: Test results Agreed on:: Treatment plan, place in obs Will see patient: in hospital - Diagnostic Testing Diagnostic test were ordered, analyzed, and reviewed by me: Yes Radiological Interpretation: Interpreted by me, Reviewed by me, Teleradiologist Report - Risk of complications The pt has a mod risk of morbidity or mortality based on: Need for prescription drug management The pt has a high risk of morbidity or mortality based on: Decision regarding hospitilization or escalation of hosp level of care - Departure Departure Disposition: Transfer ([facility]) Clinical Impression: UTI (urinary tract infection), Hyponatremia, Hypocalcemia, Lactic acid increased, Dehydration, Elevated alkaline phosphatase level, Confusion, Visual hallucination, Left shoulder pain, Shoulder fracture, left, Abscess of left sh oulder, Axillary lymphadenopathy Condition: Stable Critical Care Time: No Referrals: OMAYRA GOMEZ DO [Primary Care Provider] - Follow up/PCP as directed
[2023-12-06 14:45] LABS: Appearance Clear (Clear); Bilirubin Negative (Negative); Blood Negative (Negative); Epithelial Cells Rare /HPF (None Seen); Glucose, Urine >=1000 mg/dL (Negative); Hyaline Casts NONE SEEN /LPF (0-2); Ketones Negative (Negative); Leukocyte Esterase Moderate (Negative); Nitrite Negative (Negative); Protein,Urine Dip Negative (Negative); RBC 0-2 /HPF (0-5); Specific Gravity 1.015 (1.005-1.030); Urobilinogen 0.2 mg/dL (0.2)
[2023-12-06 14:47] LABS: ADD URINE CULTURE? ORDERED SEPARATELY (NO); Bacteria Rare /HPF (None Seen); WBC 0-2 /HPF (0-5)
[2023-12-06 15:03] LABS: Absolute Neutrophil Ct (ANC) 6.24 x10^3/uL (1.56-6.13); BASOPHIL % 0.4 % (0.1-1.2); Basophil (Absolute #) 0.04 x10^3/uL (0.01-0.08); Eosinophil % 1.7 % (0.7-5.8); Eosinophil (Absolute #) 0.15 x10^3/uL (0.04-0.36); Hematocrit 35.9 % (34.1-44.9); Hemoglobin 11.6 g/dL (11.2-15.7); IMMATURE GRAN # 0.03 x10^3u/L (0.001-0.031); IMMATURE GRAN % 0.3 % (0.001-0.429); Lymphocyte (Absolute #) 1.84 x10^3/uL (1.18-3.74); Lymphocytes % 20.5 % (19.3-51.7); Mean Cell Volume 83.5 fL (79.4-94.8); Mean Corpuscular Hgb Concent. 32.3 g/dL (32.2-35.5); Mean Platelet Volume 9.7 fL (9.4-12.3); Monocyte (Absolute #) 0.67 x10^3/uL (0.24-0.86); Monocytes % 7.5 % (4.7-12.5); Neutrophil % 69.6 % (34.0-71.1); Platelet Count 342 x10^3/uL (182-369); Red Cell Distribution Width 16.5 % (11.7-14.4)
--- NOTE | 2023-12-06 16:22 | XRAY ---
Indication: Pain. Comparison: None 3 portable views left shoulder demonstrates osteopenia, moderate AC, mild/moderate multilevel cervical thoracic degenerative spondylosis, and a few tiny pulmonary calcified granulomas. Multiple curvilinear ossifications around humeral head likely sequela to chronic inflammation/inflammation. Patient edentulous. No other bony, articular, or soft tissue abnormalities.
[2023-12-06] MEDS ORDERED: ROCEPHIN 2 GM/100 ML NACL 2 GM/100 ML IVPB IV ONE (16:23)
[2023-12-06] MEDS ORDERED: Sodium Chloride 0.9% 1000 ML 1,000 ML ONE (16:23)
[2023-12-06] MEDS: Sodium Chloride 0.9% 1000 ML 1,000 ML IV STA (16:25)
[2023-12-06] MEDS: ROCEPHIN 2 GM/100 ML NACL 2 GM/100 ML IVPB IV ONE (16:26)
[2023-12-06 16:36] LABS: ALBUMIN 4.1 g/dL (3.5-5.0); ALKALINE PHOSPHATASE 131 U/L (38-126); ANION GAP 7.3 MEQ/L (5-15); BLOOD UREA NITROGEN 18 mg/dL (7-17); CHLORIDE 93 mmol/L (98-107); Calcium 11.6 mg/dL (8.4-10.2); Carbon Dioxide 33 mmol/L (22-30); Creatinine 1 0.93 mg/dL (0.52-1.04); Glucose 170 mg/dL (74-106); SGOT/AST 29 U/L (14-36); SGPT/ALT 21 U/L (0-35); SODIUM 129 mmol/L (135-145); TSH, 3RD Generation 2.793 mIU/L (0.470-4.680); Total Protein 7.5 g/dL (6.3-8.2); Vitamin B12 > 961 pg/mL (239-931)
[2023-12-06] MEDS ORDERED: XYLOCAINE 1% HCL 20 ML MDV ONE (17:41)
[2023-12-06 17:49] LABS: PHOSPHOROUS 4.3 mg/dL (2.5-4.5)
[2023-12-06] MEDS: XYLOCAINE 1% HCL 20 ML MDV IJ ONE (18:21)
[2023-12-06] MEDS ORDERED: TORAdol 30 mg Injection ONE (19:42)
[2023-12-06] MEDS: TORAdol 30 mg Injection IV ONE (19:42)
[2023-12-06 23:01] VITALS: RESP 17
[2023-12-06] MEDS ORDERED: PIPERACILLIN/TAZOBACTAM IV ONE (23:09)
[2023-12-06] MEDS ORDERED: Sodium Chloride 100ML MINI-BAG PLUS 100 ML IV ONE (23:09)
[2023-12-06] MEDS: PIPERACILLIN/TAZOBACTAM 3.375 GM in Sodium Chloride 100ML MINI-BAG PLUS 100 ML IV ONE (23:12)
[2023-12-06] MEDS ORDERED: VANCOMYCIN 2 GRAM/400 ML BAG 2 GM/400 ML PIGGYBACK IV ONE (23:14)
[2023-12-06] MEDS: VANCOMYCIN 2 GRAM/400 ML BAG 2 GM/400 ML PIGGYBACK IV ONE (23:46)
[2023-12-07 00:08] VITALS: BP 134/72; PULSE 69; O2SAT 98
--- NOTE | 2023-12-07 08:37 | XRAY ---
Indication: Altered mental status. Multiple contiguous axial images obtained through the head without contrast. Comparison: November 30, 2021 Again age-appropriate global atrophy and mild/moderate periventricular degenerative micro-ischemia bilaterally. No acute intracranial hemorrhage, abnormal extra-axial fluid collection, or mass effect. Fourth ventricle is midline without hydrocephalus. Bony calvarium intact. Visualized paranasal sinuses and mastoid air cells are clear. Impression: Continued nonacute senile brain.
--- NOTE | 2023-12-07 08:47 | XRAY ---
Indication: Pain. Abscess. Multiple contiguous axial images obtained through the left shoulder without contrast. Sagittal and coronal reformatted images obtained. Comparison: None Osseous structures demineralized consistent with patient's age. Moderate glenohumeral degenerative arthropathy without large effusion. Large multiloculated partially calcified fluid collection centered around deltoid and lesser degree infraspinatus muscles measuring at least 6 x 9 x 3 cm in greatest AP, transverse, and CC projections. Fluid collection also demonstrates tiny air bubbles concerning for gas-forming infection/abscess. Smaller abscesses seen along posterior medial margins of the scapula. The scapula demonstrates osseous destructive process, particularly the spine of the scapula and acromion process. Prominent reactive left axillary lymph nodes largest 2.5 x 2.7 cm. Elsewhere mild/moderate multilevel thoracic degenerative changes with incompletely visualized epidural leads terminating T8. Heart is enlarged with mitral valve calcifications. Small right hilar calcified nodes. Moderately arteriosclerotic aorta without aneurysm. Visualized lungs are clear. Impression: 1. Large multiloculated and multifocal abscesses centered around scapula as detailed. Associated scapular osseous destructive process and reactive axillary lymphadenopathy. 2. Chronic findings including osteopenia, glenohumeral degenerative arthropathy, multilevel thoracic degenerative spondylosis, cardiomegaly with mitral valve calcifications, arteriosclerotic disease, and old granulomatous disease.
[2023-12-08 13:50] LABS: PTH, Intact 6 pg/mL (15-65)
== END 2023-12-07 00:50 | disposition short-term general hospital (02) ==
LOC: ED 13:03
DX: N39.0 Urinary tract infection, site not specified (principal); E87.1 Hypo-osmolality and hyponatremia; E83.51 Hypocalcemia; E87.20 Acidosis, unspecified; E86.0 Dehydration; R74.8 Abnormal levels of other serum enzymes; R41.0 Disorientation, unspecified; R44.1 Visual hallucinations; M25.512 Pain in left shoulder; L02.414 Cutaneous abscess of left upper limb; R59.0 Localized enlarged lymph nodes; M89.512 Osteolysis, left shoulder; I10 Essential (primary) hypertension; E11.42 Type 2 diabetes mellitus with diabetic polyneuropathy; Z79.84 Long term (current) use of oral hypoglycemic drugs; Z79.899 Other long term (current) drug therapy
CPT/HCPCS: 36000; 36415; 70450; 73030; 73201; 80053; 80061; 81001; 82140; 82330; 82542; 82550; 82607; 83605; 83690; 83721; 83970; 84100; 84443; 85025; 85652; 86140; 87086; 94760; 96365; 96367; 96372; 96374; 99285; P9612; J0696; J1885; J3370